=== PATIENT | female | born 1960 | race Caucasian/White ===

== ENCOUNTER → 2016-03-25 | Outpatient (CLI) | payer OTHER ==
--- NOTE | 2016-03-25 13:27 | US ---
EXAMINATION TYPE: US abdomen complete DATE OF EXAM: 03/25/2016 12:38 PM COMPARISON: 2011 CT in PACS CLINICAL HISTORY: R18.8 ASCITES. Pt states ABD bloating, alcohol abuse x 20 yrs, now quit EXAM MEASUREMENTS: Liver Length: 14.2 cm CBD: 1.0 cm Spleen: 9.8 cm Right Kidney: 10.9 x 3.9 x 4.9 cm Left Kidney: 11.5 x 4.9 x 4.6 cm TECHNOLOGIST IMPRESSION: Pancreas: head, body wnl/ tail obscured by bowel gas Liver: Appeared wnl Gallbladder: Surgically absent CBD: ?wnl post zulay Spleen: wnl Right Kidney: wnl Left Kidney: wnl Upper IVC: wnl Abd Aorta: wnl PLEASE NOTE: No ascites visualized throughout ABD The liver is homogenous. The intrahepatic portion of the IVC and proximal abdominal aorta are within normal limits. There is no evidence of cholelithiasis. Common bile duct is unremarkable. The visu alized portions of the pancreas are homogenous. The spleen is unremarkable. Kidneys are symmetric a nd free of hydronephrosis. No renal lesions are seen. IMPRESSION: Normal abdominal ultrasound.
== END | disposition home or self-care (01) ==
LOC: RADUSWWP 12:21
PROVIDERS: ATTEND Family Medicine
DX: R18.8 Other ascites (principal)
CPT/HCPCS: 76700

== ENCOUNTER → 2016-08-31 | Outpatient (CLI) | payer OTHER ==
--- NOTE | 2016-09-02 06:58 | MM ---
Reason for exam: screening (asymptomatic). Last mammogram was performed 1 year and 4 months ago. History: Patient is postmenopausal. Physical Findings: A clinical breast exam by your physician is recommended on an annual basis and results should be correlated with mammographic findings. MG 3D Screening Mammo W/Cad Bilateral CC and MLO view(s) were taken. Prior study comparison: May 10, 2015, bilateral MG 3d screening mammo w/cad. April 20, 2014, bilateral MG screening mammo w CAD. April 14, 2013, bilateral digital screening mammo w/CAD. There are scattered fibroglandular densities. No significant changes when compared with prior studies. ASSESSMENT: Negative, BI-RAD 1 RECOMMENDATION: Routine screening mammogram of both breasts in 1 year.
== END | disposition home or self-care (01) ==
LOC: RADMAMWWP 11:34
PROVIDERS: ATTEND Family Medicine
DX: Z12.31 Encounter for screening mammogram for malignant neoplasm of breast (principal)
CPT/HCPCS: 77063; G0202

== ENCOUNTER → 2017-11-09 | Outpatient (CLI) | payer OTHER ==
--- NOTE | 2017-11-11 13:22 | MM ---
Reason for exam: screening (asymptomatic). Last mammogram was performed 1 year and 2 months ago. History: Patient is postmenopausal. Took hormonal contraceptives for 15 years. Physical Findings: A clinical breast exam by your physician is recommended on an annual basis and results should be correlated with mammographic findings. MG 3D Screening Mammo W/Cad Bilateral CC and MLO view(s) were taken. Prior study comparison: August 31, 2016, bilateral MG 3d screening mammo w/cad. May 10, 2015, bilateral MG 3d screening mammo w/cad. There are scattered fibroglandular densities. No significant changes when compared with prior studies. ASSESSMENT: Benign, BI-RAD 2 RECOMMENDATION: Routine screening mammogram of both breasts in 1 year.
== END | disposition home or self-care (01) ==
LOC: RADMAMWWP 14:33
PROVIDERS: ATTEND Family Medicine
DX: Z12.31 Encounter for screening mammogram for malignant neoplasm of breast (principal)
CPT/HCPCS: 77063; 77067

== ENCOUNTER → 2019-01-16 | Outpatient (CLI) | payer OTHER ==
--- NOTE | 2019-01-17 11:03 | MM ---
Reason for exam: screening (asymptomatic). Last mammogram was performed 1 year and 2 months ago. History: Patient is postmenopausal. Took hormonal contraceptives for 15 years. Physical Findings: A clinical breast exam by your physician is recommended on an annual basis and results should be correlated with mammographic findings. MG 3D Screening Mammo W/Cad Bilateral CC and MLO view(s) were taken. Prior study comparison: November 09, 2017, bilateral MG 3d screening mammo w/cad. August 31, 2016, bilateral MG 3d screening mammo w/cad. There are scattered fibroglandular densities. Subareolar focal asymmetry on the left is more defined and incompletely disperses on the 3D images. Otherwise, no significant change. ASSESSMENT: Incomplete: need additional imaging evaluation, BI-RAD 0 RECOMMENDATION: Special view mammogram of the left breast. (3D) If lesion persists on supplemental views, image directed ultrasound is recommended. [facility] will attempt to contact patient to return for supplemental views and ultrasound if indicated.
== END ==
LOC: RADMAMWWP 15:19
PROVIDERS: ATTEND Family Medicine
DX: Z12.31 Encounter for screening mammogram for malignant neoplasm of breast (principal)
CPT/HCPCS: 77063; 77067

== ENCOUNTER → 2019-01-26 | Outpatient (CLI) | payer OTHER ==
[2019-01-26 11:55] LABS: African American GFR (CKD) >90 (>60 ml/min/1.73 sqM); Blood Urea Nitrogen 9 mg/dL (7-17); Non-African American GFR(CKD) 88 (>60 ml/min/1.73 sqM)
--- NOTE | 2019-01-26 15:59 | CT ---
EXAMINATION TYPE: CT abdomen pelvis w con DATE OF EXAM: 01/26/2019 COMPARISON: 01/20/2011 INDICATION: RIGHT FLANK PAIN AND WEIGHT LOSS DLP: 781.9 mGycm, Automated exposure control for dose reduction was used. CONTRAST: 100 mL of Isovue 300. Study performed with Oral Contrast TECHNIQUE: Axial images were obtained from above the diaphragm to the pubic rami in the axial plane a t 5 mm thick sections. Reconstructed images are reviewed on the computer in the coronal plane. FINDINGS: Limited CT sections are obtained the lung bases. The lung bases are clear. CT ABDOMEN: Liver: Normal Spleen: Normal Pancreas: Normal Adrenal glands: The adrenal glands are normal. Gallbladder: Surgically absent Kidneys: No masses are evident. No hydronephrosis is present. No cysts are present. Delayed images were obtained through the kidneys, which remain unremarkable. Aorta: Normal Inferior vena cava: Normal. CT PELVIS: Loops of bowel within the abdomen and pelvis are normal. Fecal debris is through the colon. There are loops of bowel lacking oral contrast limiting their evaluation. Appendix: The appendix lies lateral to the liver. No inflammatory changes are dilated appendix is chantal dent. Urinary bladder: Decompressed with limited evaluation. Genitourinary structures: Uterus appears normal. Adnexal regions are clear. Osseous structures: No suspicious lytic or sclerotic lesions. IMPRESSIONS: 1. No suspicious abnormality to account for right flank pain. 2. Chilaiditi syndrome
== END | disposition home or self-care (01) ==
LOC: RADCTMAIN 09:59
PROVIDERS: ATTEND Family Medicine
DX: K92.89 Other specified diseases of the digestive system (principal); Z88.1 Allergy status to other antibiotic agents
CPT/HCPCS: 82565; 84520; 74177; 36415; Q9967

== ENCOUNTER → 2019-01-27 | Outpatient (CLI) | payer OTHER ==
--- NOTE | 2019-01-27 11:11 | MM ---
Reason for exam: additional evaluation requested from abnormal screening. Last mammogram was performed less than 1 month ago. History: Patient is postmenopausal. Took hormonal contraceptives for 15 years. Physical Findings: Nurse did not find any significant physical abnormalities on exam. MG 3D Work Up W/Cad LT Spot compression CC, spot compression MLO, and LM view(s) were taken of the left breast. Prior study comparison: January 16, 2019, bilateral MG 3d screening mammo w/cad. November 09, 2017, bilateral MG 3d screening mammo w/cad. There are scattered fibroglandular densities. The previously seen abnormality resolves on additional views and appears as fibroglandular tissue compatible with summation. No suspicious abnormality. These results were verbally communicated with the patient and result sheet given to the patient on 01/27/19. ASSESSMENT: Negative, BI-RAD 1 RECOMMENDATION: Return to routine screening mammogram schedule for both breasts.
== END | disposition home or self-care (01) ==
LOC: RADMAMWWP 10:19
PROVIDERS: ATTEND Family Medicine
DX: R92.8 Other abnormal and inconclusive findings on diagnostic imaging of breast (principal)
CPT/HCPCS: 77065; G0279; 77061

== ENCOUNTER 2019-03-06 07:46 | Day surgery (SDC) | payer OTHER ==
[2019-03-03 12:51] VITALS: BMI 28.9
[~2019-03-06 07:46] MED LIST: LACTATED RINGERS 1,000 ML IV SCH; LIDOCAINE 1% 20 ML VIAL (10MG/ML) FOR IV START INTRADERMA PRN
[2019-03-06 08:10] VITALS: RESP 16; TEMP 97.8
[2019-03-06] MEDS ORDERED: DEXTROSE 50% SYRINGE 50 ML IVP ONE (08:22)
[2019-03-06] MEDS ORDERED: PROPOFOL 10 MG/ML 20 ML VIAL IV ONE (08:27)
[2019-03-06] MEDS ORDERED: LIDOCAINE 1% INJ 10MG/ML (20 ML MDV) ONE (08:27)
[2019-03-06 08:49] LABS: Glucose,Whole Blood 59 mg/dL (75-99)
[2019-03-06 08:49] LABS: Glucose,Whole Blood 111 mg/dL (75-99)
--- NOTE | 2019-03-06 08:49 | P.PCN ---
Date of Procedure: 03/06/19 Description of Procedure: BRIEF HISTORY: Patient is a 58-year-old female with a medical history significant for diabetes mellitus who presents to the outpatient setting for EGD for evaluation of GERD. Patient has a four-month history of daily intractable nausea, vomiting and bowel movements described as watery without blood. She reports unintentional weight loss with dietary changes. PROCEDURE PERFORMED: Esophagogastroduodenoscopy with biopsy. PREOPERATIVE DIAGNOSIS: Gastroesophageal reflux disease, nausea and vomiting. ESTIMATED BLOOD LOSS: Minimal. IV sedation per anesthesia. PROCEDURE: After informed consent was obtained, the patient was brought into the endoscopy unit. IV sedation was administered by Anesthesia under continuous monitoring. Initially the Olympus GIF-190 video endoscope was inserted into the mouth. Esophagus intubated without any difficulty. It was gradually advanced into the stomach and duodenum and carefully examined. The bulb and the second part of the duodenum appeared normal, with biopsies taken to rule out celiac sprue. The scope at this time was withdrawn to the stomach, adequately insufflated with air, and upon careful examination, mucosa of the antrum, body, cardia and the fundus appeared normal, except for moderate erythema and nodularity of the antrum suggestive of moderate antritis with biopsies of the antrum taken. The scope was then withdrawn into the esophagus. The GE junction was located at 36 cm from the incisors. The esophagus appeared normal. There were no erosions, varices or ulcerations seen and the patient tolerated the procedure well. IMPRESSION: 1. Moderate antritis, biopsies of the antrum taken. 2. Biopsies of the duodenum to rule out celiac sprue. RECOMMENDATIONS: The findings of this examination were discussed with the patient and her family. Okay to resume diet. Okay to resume medications. Await pathology from biopsies. Follow up in gastroenterology clinic as previously scheduled.
[2019-03-06 09:03] LABS: Glucose,Whole Blood 131 mg/dL (75-99)
[2019-03-06 09:07] VITALS: BP 107/75; PULSE 69
== END 2019-03-06 09:37 | disposition home or self-care (01) ==
LOC: ORWHC2ENDO 07:46
PROVIDERS: ATTEND Internal Medicine
DX: K29.50 Unspecified chronic gastritis without bleeding (principal); K21.9 Gastro-esophageal reflux disease without esophagitis; E11.9 Type 2 diabetes mellitus without complications; F41.9 Anxiety disorder, unspecified; F32.9 Major depressive disorder, single episode, unspecified; Z88.1 Allergy status to other antibiotic agents; Z79.84 Long term (current) use of oral hypoglycemic drugs; Z79.899 Other long term (current) drug therapy; Z90.49 Acquired absence of other specified parts of digestive tract
CPT/HCPCS: 88305; 88342; 43239; J2001; J2704

== ENCOUNTER → 2019-08-09 | Outpatient (CLI) | payer OTHER ==
--- NOTE | 2019-08-09 18:17 | BD ---
EXAMINATION TYPE: Axial Bone Density DATE OF EXAM: 08/09/2019 COMPARISON: NONE CLINICAL HISTORY: Nuclear Medicine Study in the last 2 weeks: NO Barium Study in the last week: NO : NO Height: 5 FT 3/4 IN Weight: 146 FRAX RISK QUESTIONS: Alcohol (3 or more units per day): NO Family History (Parent hip fracture): NO Glucocorticoids (More than 3mos): MO (Ex: prednisone, prednisolone, methylprednisolone, dexamethasone, and hydrocortisone). History of Fracture in Adulthood: NO Secondary Osteoporosis: 1. Type 1 Diabetes: NO 2. Hyperthyroidism: NO 3. Menopause before 45: YES 4. Malnutrition: NO 5. Chronic liver disease: NO Rheumatoid Arthritis: NO Current Tobacco Use: NO RISK FACTORS HISTORY OF: Family History of Osteoporosis: YES Active: NO Diet low in dairy products/other sources of calcium: YES Postmenopausal woman: AROUND AGE 44 Lost more than 2 inches in height since high school: YES MEDICATIONS: Additional Medications: BUSPIRONE, HYDROXYZINE, LITHIUM NALTREXONE, TRINTELIX,AMBIEN, BIOTIN, FUROSEM TIARRA, GLIMEPIRIDE, METFORMIN, POTASSIUM CHLORIDE, PRILOSEC, SIMVASTATIN, SPIRONOLACTONE, TRAMADOL, VIT D Additional History: EXAM MEASUREMENTS: Bone mineral densitometry was performed using the [employer] System. Bone mineral density as measured about the Lumbar spine is: ----- L1-L4(G/cm2): 1.111 T Score Values are as follows: ----- L2: -1.5 ----- L3: -1.0 ----- L4: 0.9 ----- L1-L4: -0.6 BASELINE Bone mineral density about the R hip (g/cm2): 0.817 Bone mineral density about the L hip (g/cm2): 0.947 T Score values are as follows: -----R Neck: -1.6 -----L Neck: -1.4 -----R Total: -1.2 -----L Total: -0.8 BASELINE IMPRESSION: Osteopenia (T Score between -2.5 and -1). There is slightly increased risk of fracture and the patient may be considered for treatment. Re-Screen 2-5 years. NOTE: T-SCORE=SD OF THE YOUNG ADULT MEAN.
== END | disposition home or self-care (01) ==
LOC: RADBDWWP 15:41
PROVIDERS: ATTEND Family Medicine
DX: M85.80 Other specified disorders of bone density and structure, unspecified site (principal); M19.90 Unspecified osteoarthritis, unspecified site; M79.605 Pain in left leg; Z88.1 Allergy status to other antibiotic agents; Z88.8 Allergy status to other drugs, medicaments and biological substances
CPT/HCPCS: 77080

== ENCOUNTER → 2020-07-23 | Outpatient (CLI) | payer OTHER ==
--- NOTE | 2020-07-23 16:33 | NM ---
EXAMINATION TYPE: NM bone scan whole body DATE OF EXAM: 07/23/2020 COMPARISON: NONE HISTORY: Joint pain, bone pain Delayed whole-body scanning was performed following the injection of 20.5 mCi Tc 99m MDP. Images acq uired 3 hours post injection. Delayed whole-body scanning was performed. FINDINGS: Soft tissue uptake is normal. Uptake within the feet, ankles, knees, wrists, elbows, shoulders and st ernoclavicular joints is likely degenerative. Uptake within the visualized lower spine is also presen t and may be due to degenerative disc disease and facet arthropathy, there is uptake in the mid and l ower thoracic spine, costovertebral angles, bandlike activity at the T9-10 level is noted. IMPRESSION: There may be osteoporotic compression deformity lower thoracic spine level. Degenerative changes.
== END | disposition home or self-care (01) ==
LOC: RADNMMAIN 11:07
PROVIDERS: ATTEND Family Medicine
DX: M89.8X9 Other specified disorders of bone, unspecified site (principal)
CPT/HCPCS: 78306; A9503

== ENCOUNTER → 2021-02-03 | Outpatient (CLI) | payer OTHER | END | disposition home or self-care (01) | LOC: LABWHC1 12:45 | PROVIDERS: ATTEND Family Medicine | DX: R09.89 Other specified symptoms and signs involving the circulatory and respiratory systems (principal); Z20.822 Contact with and (suspected) exposure to COVID-19 | CPT/HCPCS: U0003; C9803 ==

== ENCOUNTER 2021-06-08 06:39 | Inpatient (IN) | payer OTHER ==
[2021-06-08 06:46] LABS: Glucose,Whole Blood 152 mg/dL (75-99)
[2021-06-08] MEDS ORDERED: SODIUM CHLORIDE 0.9% 500 ML 500 ML IV STA (06:56)
[2021-06-08] MEDS ORDERED: SODIUM CHLORIDE 0.9% 1,000 ML IV STA (06:56)
[2021-06-08 07:25] LABS: Basophils % (A) 1 %; Eosinophils # (A) 0.1 k/uL (0-0.7); Eosinophils % (A) 2 %; HCT 36.8 % (34.0-46.0); HGB 12.2 gm/dL (11.4-16.0); Lymphocytes # (A) 1.4 k/uL (1.0-4.8); Lymphocytes % (A) 27 %; MCH 32.7 pg (25.0-35.0); MCHC 33.2 g/dL (31.0-37.0); MCV 98.6 fL (80.0-100.0); Mean Platelet Volume 7.8; Monocytes # (A) 0.3 k/uL (0-1.0); Monocytes % (A) 5 %; Neutrophils # (A) 3.2 k/uL (1.3-7.7); Neutrophils % (A) 63 %; Platelet Count 250 k/uL (150-450); RBC 3.74 m/uL (3.80-5.40); RDW 14.9 % (11.5-15.5)
--- NOTE | 2021-06-08 07:26 | XR ---
EXAMINATION TYPE: XR chest 2V DATE OF EXAM: 06/08/2021 COMPARISON: NONE HISTORY: Shortness of breath TECHNIQUE: Frontal and lateral views of the chest are obtained. FINDINGS: Scattered senescent parenchymal changes noted. No evidence for infiltrate. No evidence for atelectasis. Heart size is stable. Mediastinal structures are stable and grossly unremarkable. No evidence for hilar prominence. Degenerative changes dorsal spine. IMPRESSION: 1. No evidence for acute pulmonary disease.
[2021-06-08 07:48] LABS: Glucose,Whole Blood 64 mg/dL (75-99)
[2021-06-08 07:55] LABS: Appearance,Urine Clear (Clear); Bilirubin,Urine Negative (Negative); Blood,Urine Negative (Negative); Color,Urine Light Yellow; Glucose,Urine (UA) Negative (Negative); Ketones,Urine Negative (Negative); Leukocyte Esterase,Urine Negative (Negative); Nitrite,Urine Negative (Negative); Protein,Urine Negative (Negative); Specific Gravity,Urine 1.004 (1.001-1.035); Urobilinogen,Urine <2.0 mg/dL (<2.0)
[2021-06-08 08:06] LABS: INR 1.1 (<1.2); Partial Thromboplastin Time 24.9 sec (22.0-30.0); Prothrombin Time 11.4 sec (9.0-12.0)
[2021-06-08 08:07] LABS: Glucose,Whole Blood 60 mg/dL (75-99)
[2021-06-08 08:10] LABS: ALT 16 U/L (4-34); AST 26 U/L (14-36); African American GFR (CKD) >90 (>60 ml/min/1.73 sqM); Albumin 4.3 g/dL (3.5-5.0); Alkaline Phosphatase 86 U/L (38-126); Anion Gap 15 mmol/L; Blood Urea Nitrogen 14 mg/dL (7-17); Calcium 9.8 mg/dL (8.4-10.2); Carbon Dioxide 18 mmol/L (22-30); Chloride 112 mmol/L (98-107); Glucose 67 mg/dL (74-99); Magnesium 1.9 mg/dL (1.6-2.3); Non-African American GFR(CKD) 79 (>60 ml/min/1.73 sqM); Potassium 4.1 mmol/L (3.5-5.1); Sodium 145 mmol/L (137-145); Total Bilirubin 0.5 mg/dL (0.2-1.3); Total Protein 7.5 g/dL (6.3-8.2)
[2021-06-08] MEDS ORDERED: DEXTROSE 5%-0.45% NACL 1,000 ML IV ONE (08:11)
[2021-06-08] MEDS ORDERED: OCTREOTIDE 100 MCG/ML INJ IVP STA (08:12)
[2021-06-08 08:21] LABS: Amphetamine Screen,Urine Not Detected (NotDetected); Barbiturate Screen,Urine Not Detected (NotDetected); Benzodiazepines Screen,Urine Not Detected (NotDetected); Cocaine Screen,Urine Not Detected (NotDetected); Methadone Screen, Urine Not Detected (NotDetected); Opiate Screen,Urine Not Detected (NotDetected); Oxycodone Screen, Urine Not Detected (NotDetected); Phencyclidine Screen,Urine Not Detected (NotDetected); Tricyclic Antidepressant,Urine Not Detected (NotDetected); Urn Cannabinoid Scrn Not Detected (NotDetected)
[2021-06-08 08:50] LABS: Glucose,Whole Blood 75 mg/dL (75-99)
[2021-06-08] MEDS ORDERED: ONDANSETRON 4 MG/2 ML VIAL IVP PRN (08:55)
[2021-06-08] MEDS ORDERED: NALOXONE 0.4 MG/ML 1 ML VIAL IV PRN (08:55)
--- NOTE | 2021-06-08 08:55 | ED ---
General Adult HPI - General Source: patient, EMS, RN notes reviewed Mode of arrival: EMS Limitations: altered mental status <Karlo Calderón - Last Filed: 06/08/21 08:50> <Louie Patricia - Last Filed: 06/08/21 11:10> - General Chief complaint: Altered Mental Status Stated complaint: hypoglycemia Time Seen by Provider: 06/08/21 06:43 - History of Present Illness Initial comments: This a 60-year-old female presents emergency Department with chief went of hyperglycemia, confusion. Patient states that she has not been feeling well states that she called EMS ,EMS arrived and found to have blood sugar of 60. Patient did receive dextrose in which her blood sugar improved though asymmetric dewdrop unarousable emergency department. Patient states that she is currently depressed and she recently lost her fiance. Patient has underlying schizoaffective disorder. Patient states that she does have history of diabetes and glipizide and metformin. Patient has no physical complaints. Denies any chest pain shortness of breath headache dizziness or blurred vision or focal weakness. (Karlo Calderón) - Related Data Home Medications Medication Instructions Recorded Confirmed Cholecalciferol [Vitamin D3 (25 25 mcg PO HS 03/03/19 06/08/21 Mcg = 1000 Iu)] Furosemide [Lasix] 40 mg PO DAILY 03/03/19 06/08/21 Glimepiride [Amaryl] 4 mg PO BID 03/03/19 06/08/21 Omeprazole [PriLOSEC] 20 mg PO DAILY 03/03/19 06/08/21 Ondansetron [Zofran] 4 mg PO BID PRN 03/03/19 06/08/21 Potassium Chloride [Klor-Con 20] 20 meq PO BID 03/03/19 06/08/21 Spironolactone [Aldactone] 25 mg PO BID@0900,1900 03/03/19 06/08/21 metFORMIN HCL 500 mg PO DAILY 03/03/19 06/08/21 Amoxicillin 500 mg PO TID 05/27/21 06/08/21 Biotin 10,000 mcg PO DAILY@1900 05/27/21 06/08/21 Ibuprofen [Motrin] 800 mg PO QID PRN 05/27/21 06/08/21 Milk Thistle 150 mg PO DAILY@189905/27/21 06/08/21 Multivitamins, Thera [Multivitamin 1 tab PO BID@0900,1900 05/27/21 06/08/21 (formulary)] Pioglitazone [Actos] 15 mg PO DAILY@1900 05/27/21 06/08/21 Simvastatin [Zocor] 20 mg PO HS 05/27/21 06/08/21 Vilazodone HCl [Viibryd] 20 mg PO DIRECTED 05/27/21 06/08/21 Zolpidem Tartrate [Ambien Cr] 12.5 mg PO HS 05/27/21 06/08/21 buPROPion XL [Wellbutrin XL] 150 mg PO DAILY 05/27/21 06/08/21 Allergies Allergy/AdvReac Type Severity Reaction Status Date / Time ciprofloxacin [From Cipro] Allergy Itching Verified 06/08/21 10:16 miconazole Allergy Rash/Hives Verified 06/08/21 10:16 [From Neosporin AF] Review of Systems ROS Other: All systems not noted in ROS Statement are negative. <Karlo Calderón - Last Filed: 06/08/21 08:50> ROS Other: All systems not noted in ROS Statement are negative. <Louie Patricia - Last Filed: 06/08/21 11:10> ROS Statement: Those systems with pertinent positive or pertinent negative responses have been documented in the HPI. Past Medical History Past Medical History: Diabetes Mellitus, GERD/Reflux, Hyperlipidemia, Hypertension Additional Past Medical History / Comment(s): N/V/D FREQUENT History of Any Multi-Drug Resistant Organisms: None Reported Past Surgical History: Cholecystectomy Past Anesthesia/Blood Transfusion Reactions: No Reported Reaction Past Psychological History: Anxiety, Depression Smoking Status: Never smoker Past Alcohol Use History: None Reported Past Drug Use History: None Reported - Past Family History Mother Family Medical History: No Reported History <Karlo Calderón - Last Filed: 06/08/21 08:50> General Exam Limitations: no limitations General appearance: alert, in no apparent distress Head exam: Present: atraumatic, normocephalic, normal inspection Eye exam: Present: normal appearance, PERRL, EOMI. Absent: scleral icterus, conjunctival injection, periorbital swelling ENT exam: Present: normal exam, mucous membranes moist Neck exam: Present: normal inspection. Absent: tenderness, meningismus, lymphadenopathy Respiratory exam: Present: normal lung sounds bilaterally. Absent: respiratory distress, wheezes, rales, rhonchi, stridor Cardiovascular Exam: Present: regular rate, normal rhythm, tachycardia, normal heart sounds. Absent: systolic murmur, diastolic murmur, rubs, gallop, clicks GI/Abdominal exam: Present: soft, normal bowel sounds. Absent: distended, tenderness, guarding, rebound, rigid Neurological exam: Present: alert, CN II-XII intact. Absent: oriented X3 Skin exam: Present: warm, dry, intact, normal color. Absent: rash <Karlo Calderón - Last Filed: 06/08/21 08:50> Course Vital Signs 06/08/21 06/08/21 06/08/21 06:42 06:49 07:52 Temperature 98.6 F 98.6 F Pulse Rate 115 H 126 H 123 H Respiratory 18 18 20 Rate Blood Pressure 159/89 159/89 155/94 O2 Sat by Pulse 96 98 100 Oximetry 06/08/21 06/08/21 06/08/21 08:22 09:32 10:46 Temperature Pulse Rate 131 H 125 H 140 H Respiratory 22 20 24 Rate Blood Pressure 161/104 156/91 147/82 O2 Sat by Pulse 96 95 95 Oximetry Medical Decision Making - Lab Data Result diagrams: 06/08/21 07:13 06/08/21 07:38 <Karlo Calderón - Last Filed: 06/08/21 08:50> - Lab Data Result diagrams: 06/08/21 07:13 06/08/21 10:36 <Louie Patricia - Last Filed: 06/08/21 11:10> - Medical Decision Making 60-year-old female presented from it for hyperglycemia. Patient did receive dextrose, she has recurrent hypoglycemia refusing to drink. Patient may have overdosed on his her medications this is unclear if this time. Patient continues to be tachycardic with positive methamphetamine on drug screen. She denies this. Patient will be admitted for blood glucose monitoring, psychiatric evaluation and further treatment. (Karlo Calderón) Patient was reevaluated and reexamined by myself, Dr. Patricia. Patient resting comfortably in bed. Patient without specific complaints at this time. Patient is altered. Heart rate 150. Lung sounds are clear. Repeat chest x-ray done. Repeat labs are ordered. Patient is on bicarb drip. Poison control was contacted. Nephrology was also contacted. I did speak with Dr. Lennon, who a grees with ICU admission and will consult with critical care. I do agree with PA findings. This includes diagnostic interpretation and treatment plan. (Louie Patricia) - Lab Data Lab Results 06/08/21 06/08/21 06/08/21 Range/Units 06:44 07:13 07:38 WBC 5.0 (3.8-10.6) k/uL RBC 3.74 L (3.80-5.40) m/uL Hgb 12.2 (11.4-16.0) gm/dL Hct 36.8 (34.0-46.0) % MCV 98.6 (80.0-100.0) fL MCH 32.7 (25.0-35.0) pg MCHC 33.2 (31.0-37.0) g/dL RDW 14.9 (11.5-15.5) % Plt Count 250 (150-450) k/uL MPV 7.8 Neutrophils % 63 % Lymphocytes % 27 % Monocytes % 5 % Eosinophils % 2 % Basophils % 1 % Neutrophils # 3.2 (1.3-7.7) k/uL Lymphocytes # 1.4 (1.0-4.8) k/uL Monocytes # 0.3 (0-1.0) k/uL Eosinophils # 0.1 (0-0.7) k/uL Basophils # 0.0 (0-0.2) k/uL PT (9.0-12.0) sec INR (<1.2) APTT (22.0-30.0) sec VBG pH (7.31-7.41) VBG pCO2 (37-51) mmHg VBG HCO3 (24-28) mmol/L Sodium (137-145) mmol/L Potassium (3.5-5.1) mmol/L Chloride (98-107) mmol/L Carbon Dioxide (22-30) mmol/L Anion Gap mmol/L BUN (7-17) mg/dL Creatinine (0.52-1.04) mg/dL Est GFR (CKD-EPI)AfAm (>60 ml/min/1.73 sqM) Est GFR (CKD-EPI)NonAf (>60 ml/min/1.73 sqM) Glucose (74-99) mg/dL POC Glucose (mg/dL) 152 H (75-99) mg/dL POC Glu Head Of Mathematics ID Coleman Guillaume Plasma Lactic Acid Binh (0.7-2.0) mmol/L Calcium (8.4-10.2) mg/dL Magnesium (1.6-2.3) mg/dL Total Bilirubin (0.2-1.3) mg/dL AST (14-36) U/L ALT (4-34) U/L Alkaline Phosphatase (38-126) U/L Troponin I (0.000-0.034) ng/mL Total Protein (6.3-8.2) g/dL Albumin (3.5-5.0) g/dL Urine Color Light Yellow Urine Appearance Clear (Clear) Urine pH 5.0 (5.0-8.0) Ur Specific [place] 1.004 (1.001-1.035) Urine Protein Negative (Negative) Urine Glucose (UA) Negative (Negative) Urine Ketones Negative (Negative) Urine Blood Negative (Negative) Urine Nitrite Negative (Negative) Urine Bilirubin Negative (Negative) Urine Urobilinogen <2.0 (<2.0) mg/dL Ur Leukocyte Esterase Negative (Negative) Salicylates mg/dL Urine Opiates Screen Not Detected (NotDetected) Ur Oxycodone Screen Not Detected (NotDetected) Urine Methadone Screen Not Detected (NotDetected) Ur Propoxyphene Screen Not Detected (NotDetected) Acetaminophen ug/mL Ur Barbiturates Screen Not Detected (NotDetected) U Tricyclic Antidepress Not Detected (NotDetected) Ur Phencyclidine Scrn Not Detected (NotDetected) Ur Amphetamines Screen Not Detected (NotDetected) U Methamphetamines Scrn Detected H (NotDetected) U Benzodiazepines Scrn Not Detected (NotDetected) Urine Cocaine Screen Not Detected (NotDetected) U Marijuana (THC) Screen Not Detected (NotDetected) Serum Alcohol mg/dL 06/08/21 06/08/21 06/08/21 Range/Units 07:38 07:38 07:38 WBC (3.8-10.6) k/uL RBC (3.80-5.40) m/uL Hgb (11.4-16.0) gm/dL Hct (34.0-46.0) % MCV (80.0-100.0) fL MCH (25.0-35.0) pg MCHC (31.0-37.0) g/dL RDW (11.5-15.5) % Plt Count (150-450) k/uL MPV Neutrophils % % Lymphocytes % % Monocytes % % Eosinophils % % Basophils % % Neutrophils # (1.3-7.7) k/uL Lymphocytes # (1.0-4.8) k/uL Monocytes # (0-1.0) k/uL Eosinophils # (0-0.7) k/uL Basophils # (0-0.2) k/uL PT 11.4 (9.0-12.0) sec INR 1.1 (<1.2) APTT 24.9 (22.0-30.0) sec VBG pH (7.31-7.41) VBG pCO2 (37-51) mmHg VBG HCO3 (24-28) mmol/L Sodium (137-145) mmol/L Potassium (3.5-5.1) mmol/L Chloride (98-107) mmol/L Carbon Dioxide (22-30) mmol/L Anion Gap mmol/L BUN (7-17) mg/dL Creatinine (0.52-1.04) mg/dL Est GFR (CKD-EPI)AfAm (>60 ml/min/1.73 sqM) Est GFR (CKD-EPI)NonAf (>60 ml/min/1.73 sqM) Glucose (74-99) mg/dL POC Glucose (mg/dL) (75-99) mg/dL POC Glu Head Of Mathematics ID Plasma Lactic Acid Binh 1.1 (0.7-2.0) mmol/L Calcium (8.4-10.2) mg/dL Magnesium (1.6-2.3) mg/dL Total Bilirubin (0.2-1.3) mg/dL AST (14-36) U/L ALT (4-34) U/L Alkaline Phosphatase (38-126) U/L Troponin I <0.012 (0.000-0.034) ng/mL Total Protein (6.3-8.2) g/dL Albumin (3.5-5.0) g/dL Urine Color Urine Appearance (Clear) Urine pH (5.0-8.0) Ur Specific [place] (1.001-1.035) Urine Protein (Negative) Urine Glucose (UA) (Negative) Urine Ketones (Negative) Urine Blood (Negative) Urine Nitrite (Negative) Urine Bilirubin (Negative) Urine Urobilinogen (<2.0) mg/dL Ur Leukocyte Esterase (Negative) Salicylates mg/dL Urine Opiates Screen (NotDetected) Ur Oxycodone Screen (NotDetected) Urine Methadone Screen (NotDetected) Ur Propoxyphene Screen (NotDetected) Acetaminophen ug/mL Ur Barbiturates Screen (NotDetected) U Tricyclic Antidepress (NotDetected) Ur Phencyclidine Scrn (NotDetected) Ur Amphetamines Screen (NotDetected) U Methamphetamines Scrn (NotDetected) U Benzodiazepines Scrn (NotDetected) Urine Cocaine Screen (NotDetected) U Marijuana (THC) Screen (NotDetected) Serum Alcohol mg/dL 06/08/21 06/08/21 06/08/21 Range/Units 07:38 07:38 07:47 WBC (3.8-10.6) k/uL RBC (3.80-5.40) m/uL Hgb (11.4-16.0) gm/dL Hct (34.0-46.0) % MCV (80.0-100.0) fL MCH (25.0-35.0) pg MCHC (31.0-37.0) g/dL RDW (11.5-15.5) % Plt Count (150-450) k/uL MPV Neutrophils % % Lymphocytes % % Monocytes % % Eosinophils % % Basophils % % Neutrophils # (1.3-7.7) k/uL Lymphocytes # (1.0-4.8) k/uL Monocytes # (0-1.0) k/uL Eosinophils # (0-0.7) k/uL Basophils # (0-0.2) k/uL PT (9.0-12.0) sec INR (<1.2) APTT (22.0-30.0) sec VBG pH (7.31-7.41) VBG pCO2 (37-51) mmHg VBG HCO3 (24-28) mmol/L Sodium 145 (137-145) mmol/L Potassium 4.1 (3.5-5.1) mmol/L Chloride 112 H (98-107) mmol/L Carbon Dioxide 18 L (22-30) mmol/L Anion Gap 15 mmol/L BUN 14 (7-17) mg/dL Creatinine 0.81 (0.52-1.04) mg/dL Est GFR (CKD-EPI)AfAm >90 (>60 ml/min/1.73 sqM) Est GFR (CKD-EPI)NonAf 79 (>60 ml/min/1.73 sqM) Glucose 67 L (74-99) mg/dL POC Glucose (mg/dL) 64 L (75-99) mg/dL POC Glu Head Of Mathematics ID Radha Sierra Plasma Lactic Acid Binh (0.7-2.0) mmol/L Calcium 9.8 (8.4-10.2) mg/dL Magnesium 1.9 (1.6-2.3) mg/dL Total Bilirubin 0.5 (0.2-1.3) mg/dL AST 26 (14-36) U/L ALT 16 (4-34) U/L Alkaline Phosphatase 86 (38-126) U/L Troponin I (0.000-0.034) ng/mL Total Protein 7.5 (6.3-8.2) g/dL Albumin 4.3 (3.5-5.0) g/dL Urine Color Urine Appearance (Clear) Urine pH (5.0-8.0) Ur Specific [place] (1.001-1.035) Urine Protein (Negative) Urine Glucose (UA) (Negative) Urine Ketones (Negative) Urine Blood (Negative) Urine Nitrite (Negative) Urine Bilirubin (Negative) Urine Urobilinogen (<2.0) mg/dL Ur Leukocyte Esterase (Negative) Salicylates 68.7 H* mg/dL Urine Opiates Screen (NotDetected) Ur Oxycodone Screen (NotDetected) Urine Methadone Screen (NotDetected) Ur Propoxyphene Screen (NotDetected) Acetaminophen <10.0 ug/mL Ur Barbiturates Screen (NotDetected) U Tricyclic Antidepress (NotDetected) Ur Phencyclidine Scrn (NotDetected) Ur Amphetamines Screen (NotDetected) U Methamphetamines Scrn (NotDetected) U Benzodiazepines Scrn (NotDetected) Urine Cocaine Screen (NotDetected) U Marijuana (THC) Screen (NotDetected) Serum Alcohol mg/dL 06/08/21 06/08/21 06/08/21 Range/Units 08:06 08:48 09:31 WBC (3.8-10.6) k/uL RBC (3.80-5.40) m/uL Hgb (11.4-16.0) gm/dL Hct (34.0-46.0) % MCV (80.0-100.0) fL MCH (25.0-35.0) pg MCHC (31.0-37.0) g/dL RDW (11.5-15.5) % Plt Count (150-450) k/uL MPV Neutrophils % % Lymphocytes % % Monocytes % % Eosinophils % % Basophils % % Neutrophils # (1.3-7.7) k/uL Lymphocytes # (1.0-4.8) k/uL Monocytes # (0-1.0) k/uL Eosinophils # (0-0.7) k/uL Basophils # (0-0.2) k/uL PT (9.0-12.0) sec INR (<1.2) APTT (22.0-30.0) sec VBG pH (7.31-7.41) VBG pCO2 (37-51) mmHg VBG HCO3 (24-28) mmol/L Sodium (137-145) mmol/L Potassium (3.5-5.1) mmol/L Chloride (98-107) mmol/L Carbon Dioxide (22-30) mmol/L Anion Gap mmol/L BUN (7-17) mg/dL Creatinine (0.52-1.04) mg/dL Est GFR (CKD-EPI)AfAm (>60 ml/min/1.73 sqM) Est GFR (CKD-EPI)NonAf (>60 ml/min/1.73 sqM) Glucose (74-99) mg/dL POC Glucose (mg/dL) 60 L 75 (75-99) mg/dL POC Glu Head Of Mathematics Ashley Raymundo Katlyn Plasma Lactic Acid Binh (0.7-2.0) mmol/L Calcium (8.4-10.2) mg/dL Magnesium (1.6-2.3) mg/dL Total Bilirubin (0.2-1.3) mg/dL AST (14-36) U/L ALT (4-34) U/L Alkaline Phosphatase (38-126) U/L Troponin I (0.000-0.034) ng/mL Total Protein (6.3-8.2) g/dL Albumin (3.5-5.0) g/dL Urine Color Urine Appearance (Clear) Urine pH (5.0-8.0) Ur Specific [place] (1.001-1.035) Urine Protein (Negative) Urine Glucose (UA) (Negative) Urine Ketones (Negative) Urine Blood (Negative) Urine Nitrite (Negative) Urine Bilirubin (Negative) Urine Urobilinogen (<2.0) mg/dL Ur Leukocyte Esterase (Negative) Salicylates mg/dL Urine Opiates Screen (NotDetected) Ur Oxycodone Screen (NotDetected) Urine Methadone Screen (NotDetected) Ur Propoxyphene Screen (NotDetected) Acetaminophen ug/mL Ur Barbiturates Screen (NotDetected) U Tricyclic Antidepress (NotDetected) Ur Phencyclidine Scrn (NotDetected) Ur Amphetamines Screen (NotDetected) U Methamphetamines Scrn (NotDetected) U Benzodiazepines Scrn (NotDetected) Urine Cocaine Screen (NotDetected) U Marijuana (THC) Screen (NotDetected) Serum Alcohol <10 mg/dL 06/08/21 06/08/21 06/08/21 Range/Units 09:46 10:36 10:36 WBC (3.8-10.6) k/uL RBC (3.80-5.40) m/uL Hgb (11.4-16.0) gm/dL Hct (34.0-46.0) % MCV (80.0-100.0) fL MCH (25.0-35.0) pg MCHC (31.0-37.0) g/dL RDW (11.5-15.5) % Plt Count (150-450) k/uL MPV Neutrophils % % Lymphocytes % % Monocytes % % Eosinophils % % Basophils % % Neutrophils # (1.3-7.7) k/uL Lymphocytes # (1.0-4.8) k/uL Monocytes # (0-1.0) k/uL Eosinophils # (0-0.7) k/uL Basophils # (0-0.2) k/uL PT (9.0-12.0) sec INR (<1.2) APTT (22.0-30.0) sec VBG pH (7.31-7.41) VBG pCO2 (37-51) mmHg VBG HCO3 (24-28) mmol/L Sodium 145 (137-145) mmol/L Potassium 4.3 (3.5-5.1) mmol/L Chloride 113 H (98-107) mmol/L Carbon Dioxide 14 L (22-30) mmol/L Anion Gap 18 mmol/L BUN 13 (7-17) mg/dL Creatinine 0.81 (0.52-1.04) mg/dL Est GFR (CKD-EPI)AfAm >90 (>60 ml/min/1.73 sqM) Est GFR (CKD-EPI)NonAf 79 (>60 ml/min/1.73 sqM) Glucose 165 H (74-99) mg/dL POC Glucose (mg/dL) 128 H (75-99) mg/dL POC Glu Head Of Mathematics ID Ashley Bennett Plasma Lactic Acid Binh 1.4 (0.7-2.0) mmol/L Calcium 9.9 (8.4-10.2) mg/dL Magnesium 2.0 (1.6-2.3) mg/dL Total Bilirubin (0.2-1.3) mg/dL AST (14-36) U/L ALT (4-34) U/L Alkaline Phosphatase (38-126) U/L Troponin I (0.000-0.034) ng/mL Total Protein (6.3-8.2) g/dL Albumin (3.5-5.0) g/dL Urine Color Urine Appearance (Clear) Urine pH (5.0-8.0) Ur Specific [place] (1.001-1.035) Urine Protein (Negative) Urine Glucose (UA) (Negative) Urine Ketones (Negative) Urine Blood (Negative) Urine Nitrite (Negative) Urine Bilirubin (Negative) Urine Urobilinogen (<2.0) mg/dL Ur Leukocyte Esterase (Negative) Salicylates mg/dL Urine Opiates Screen (NotDetected) Ur Oxycodone Screen (NotDetected) Urine Methadone Screen (NotDetected) Ur Propoxyphene Screen (NotDetected) Acetaminophen ug/mL Ur Barbiturates Screen (NotDetected) U Tricyclic Antidepress (NotDetected) Ur Phencyclidine Scrn (NotDetected) Ur Amphetamines Screen (NotDetected) U Methamphetamines Scrn (NotDetected) U Benzodiazepines Scrn (NotDetected) Urine Cocaine Screen (NotDetected) U Marijuana (THC) Screen (NotDetected) Serum Alcohol mg/dL 06/08/21 Range/Units 10:36 WBC (3.8-10.6) k/uL RBC (3.80-5.40) m/uL Hgb (11.4-16.0) gm/dL Hct (34.0-46.0) % MCV (80.0-100.0) fL MCH (25.0-35.0) pg MCHC (31.0-37.0) g/dL RDW (11.5-15.5) % Plt Count (150-450) k/uL MPV Neutrophils % % Lymphocytes % % Monocytes % % Eosinophils % % Basophils % % Neutrophils # (1.3-7.7) k/uL Lymphocytes # (1.0-4.8) k/uL Monocytes # (0-1.0) k/uL Eosinophils # (0-0.7) k/uL Basophils # (0-0.2) k/uL PT (9.0-12.0) sec INR (<1.2) APTT (22.0-30.0) sec VBG pH 7.35 (7.31-7.41) VBG pCO2 33 L (37-51) mmHg VBG HCO3 17 L (24-28) mmol/L Sodium (137-145) mmol/L Potassium (3.5-5.1) mmol/L Chloride (98-107) mmol/L Carbon Dioxide (22-30) mmol/L Anion Gap mmol/L BUN (7-17) mg/dL Creatinine (0.52-1.04) mg/dL Est GFR (CKD-EPI)AfAm (>60 ml/min/1.73 sqM) Est GFR (CKD-EPI)NonAf (>60 ml/min/1.73 sqM) Glucose (74-99) mg/dL POC Glucose (mg/dL) (75-99) mg/dL POC Glu Head Of Mathematics ID Plasma Lactic Acid Binh (0.7-2.0) mmol/L Calcium (8.4-10.2) mg/dL Magnesium (1.6-2.3) mg/dL Total Bilirubin (0.2-1.3) mg/dL AST (14-36) U/L ALT (4-34) U/L Alkaline Phosphatase (38-126) U/L Troponin I (0.000-0.034) ng/mL Total Protein (6.3-8.2) g/dL Albumin (3.5-5.0) g/dL Urine Color Urine Appearance (Clear) Urine pH (5.0-8.0) Ur Specific [place] (1.001-1.035) Urine Protein (Negative) Urine Glucose (UA) (Negative) Urine Ketones (Negative) Urine Blood (Negative) Urine Nitrite (Negative) Urine Bilirubin (Negative) Urine Urobilinogen (<2.0) mg/dL Ur Leukocyte Esterase (Negative) Salicylates mg/dL Urine Opiates Screen (NotDetected) Ur Oxycodone Screen (NotDetected) Urine Methadone Screen (NotDetected) Ur Propoxyphene Screen (NotDetected) Acetaminophen ug/mL Ur Barbiturates Screen (NotDetected) U Tricyclic Antidepress (NotDetected) Ur Phencyclidine Scrn (NotDetected) Ur Amphetamines Screen (NotDetected) U Methamphetamines Scrn (NotDetected) U Benzodiazepines Scrn (NotDetected) Urine Cocaine Screen (NotDetected) U Marijuana (THC) Screen (NotDetected) Serum Alcohol mg/dL Disposition <Karlo Calderón - Last Filed: 06/08/21 08:50> <Louie Patricia - Last Filed: 06/08/21 11:10> Clinical Impression: Depression, Methamphetamine use, Hypoglycemia, Altered mental status, Salicylate overdose Disposition: ADMITTED IP TO THIS [facility] Condition: Serious
[2021-06-08 09:09] LABS: Acetaminophen <10.0 ug/mL
[2021-06-08] MEDS ORDERED: DEXTROSE 10% IN WATER 1,000 ML with SODIUM CHLORIDE 2.5MEQ/ML VIAL 153.8 MEQ IV SCH (09:15)
[2021-06-08 09:21] LABS: Salicylate 68.7 mg/dL
[2021-06-08 09:50] LABS: Glucose,Whole Blood 128 mg/dL (75-99)
[2021-06-08 10:47] LABS: VBG PH 7.35 (7.31-7.41)
--- NOTE | 2021-06-08 10:55 | ED ---
Medical Decision Making - Medical Decision Making Upon further investigation patient's symptoms labwork is adamant patient found to have facilities acid overdose. Poison control was contacted I did contact nephrology patient was started on sodium bicarb and in D5 water with potassium. Patient's is being closely monitored. 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 Patient was admitted to ICU case discussed with apparatus operator. - Lab Data Result diagrams: 06/09/21 05:27 06/09/21 13:00 Lab Results 06/08/21 06/08/21 06/08/21 Range/Units 06:44 07:13 07:38 WBC 5.0 (3.8-10.6) k/uL RBC 3.74 L (3.80-5.40) m/uL Hgb 12.2 (11.4-16.0) gm/dL Hct 36.8 (34.0-46.0) % MCV 98.6 (80.0-100.0) fL MCH 32.7 (25.0-35.0) pg MCHC 33.2 (31.0-37.0) g/dL RDW 14.9 (11.5-15.5) % Plt Count 250 (150-450) k/uL MPV 7.8 Neutrophils % 63 % Lymphocytes % 27 % Monocytes % 5 % Eosinophils % 2 % Basophils % 1 % Neutrophils # 3.2 (1.3-7.7) k/uL Lymphocytes # 1.4 (1.0-4.8) k/uL Monocytes # 0.3 (0-1.0) k/uL Eosinophils # 0.1 (0-0.7) k/uL Basophils # 0.0 (0-0.2) k/uL PT (9.0-12.0) sec INR (<1.2) APTT (22.0-30.0) sec Sodium (137-145) mmol/L Potassium (3.5-5.1) mmol/L Chloride (98-107) mmol/L Carbon Dioxide (22-30) mmol/L Anion Gap mmol/L BUN (7-17) mg/dL Creatinine (0.52-1.04) mg/dL Est GFR (CKD-EPI)AfAm (>60 ml/min/1.73 sqM) Est GFR (CKD-EPI)NonAf (>60 ml/min/1.73 sqM) Glucose (74-99) mg/dL POC Glucose (mg/dL) 152 H (75-99) mg/dL POC Glu Tug Hand ID Coleman Guillaume Plasma Lactic Acid Binh (0.7-2.0) mmol/L Calcium (8.4-10.2) mg/dL Magnesium (1.6-2.3) mg/dL Total Bilirubin (0.2-1.3) mg/dL AST (14-36) U/L ALT (4-34) U/L Alkaline Phosphatase (38-126) U/L Troponin I (0.000-0.034) ng/mL Total Protein (6.3-8.2) g/dL Albumin (3.5-5.0) g/dL Urine Color Light Yellow Urine Appearance Clear (Clear) Urine pH 5.0 (5.0-8.0) Ur Specific [place] 1.004 (1.001-1.035) Urine Protein Negative (Negative) Urine Glucose (UA) Negative (Negative) Urine Ketones Negative (Negative) Urine Blood Negative (Negative) Urine Nitrite Negative (Negative) Urine Bilirubin Negative (Negative) Urine Urobilinogen <2.0 (<2.0) mg/dL Ur Leukocyte Esterase Negative (Negative) Salicylates mg/dL Urine Opiates Screen Not Detected (NotDetected) Ur Oxycodone Screen Not Detected (NotDetected) Urine Methadone Screen Not Detected (NotDetected) Ur Propoxyphene Screen Not Detected (NotDetected) Acetaminophen ug/mL Ur Barbiturates Screen Not Detected (NotDetected) U Tricyclic Antidepress Not Detected (NotDetected) Ur Phencyclidine Scrn Not Detected (NotDetected) Ur Amphetamines Screen Not Detected (NotDetected) U Methamphetamines Scrn Detected H (NotDetected) U Benzodiazepines Scrn Not Detected (NotDetected) Urine Cocaine Screen Not Detected (NotDetected) U Marijuana (THC) Screen Not Detected (NotDetected) 06/08/21 06/08/21 06/08/21 Range/Units 07:38 07:38 07:38 WBC (3.8-10.6) k/uL RBC (3.80-5.40) m/uL Hgb (11.4-16.0) gm/dL Hct (34.0-46.0) % MCV (80.0-100.0) fL MCH (25.0-35.0) pg MCHC (31.0-37.0) g/dL RDW (11.5-15.5) % Plt Count (150-450) k/uL MPV Neutrophils % % Lymphocytes % % Monocytes % % Eosinophils % % Basophils % % Neutrophils # (1.3-7.7) k/uL Lymphocytes # (1.0-4.8) k/uL Monocytes # (0-1.0) k/uL Eosinophils # (0-0.7) k/uL Basophils # (0-0.2) k/uL PT 11.4 (9.0-12.0) sec INR 1.1 (<1.2) APTT 24.9 (22.0-30.0) sec Sodium (137-145) mmol/L Potassium (3.5-5.1) mmol/L Chloride (98-107) mmol/L Carbon Dioxide (22-30) mmol/L Anion Gap mmol/L BUN (7-17) mg/dL Creatinine (0.52-1.04) mg/dL Est GFR (CKD-EPI)AfAm (>60 ml/min/1.73 sqM) Est GFR (CKD-EPI)NonAf (>60 ml/min/1.73 sqM) Glucose (74-99) mg/dL POC Glucose (mg/dL) (75-99) mg/dL POC Glu Tug Hand ID Plasma Lactic Acid Binh 1.1 (0.7-2.0) mmol/L Calcium (8.4-10.2) mg/dL Magnesium (1.6-2.3) mg/dL Total Bilirubin (0.2-1.3) mg/dL AST (14-36) U/L ALT (4-34) U/L Alkaline Phosphatase (38-126) U/L Troponin I <0.012 (0.000-0.034) ng/mL Total Protein (6.3-8.2) g/dL Albumin (3.5-5.0) g/dL Urine Color Urine Appearance (Clear) Urine pH (5.0-8.0) Ur Specific [place] (1.001-1.035) Urine Protein (Negative) Urine Glucose (UA) (Negative) Urine Ketones (Negative) Urine Blood (Negative) Urine Nitrite (Negative) Urine Bilirubin (Negative) Urine Urobilinogen (<2.0) mg/dL Ur Leukocyte Esterase (Negative) Salicylates mg/dL Urine Opiates Screen (NotDetected) Ur Oxycodone Screen (NotDetected) Urine Methadone Screen (NotDetected) Ur Propoxyphene Screen (NotDetected) Acetaminophen ug/mL Ur Barbiturates Screen (NotDetected) U Tricyclic Antidepress (NotDetected) Ur Phencyclidine Scrn (NotDetected) Ur Amphetamines Screen (NotDetected) U Methamphetamines Scrn (NotDetected) U Benzodiazepines Scrn (NotDetected) Urine Cocaine Screen (NotDetected) U Marijuana (THC) Screen (NotDetected) 06/08/21 06/08/21 06/08/21 Range/Units 07:38 07:38 07:47 WBC (3.8-10.6) k/uL RBC (3.80-5.40) m/uL Hgb (11.4-16.0) gm/dL Hct (34.0-46.0) % MCV (80.0-100.0) fL MCH (25.0-35.0) pg MCHC (31.0-37.0) g/dL RDW (11.5-15.5) % Plt Count (150-450) k/uL MPV Neutrophils % % Lymphocytes % % Monocytes % % Eosinophils % % Basophils % % Neutrophils # (1.3-7.7) k/uL Lymphocytes # (1.0-4.8) k/uL Monocytes # (0-1.0) k/uL Eosinophils # (0-0.7) k/uL Basophils # (0-0.2) k/uL PT (9.0-12.0) sec INR (<1.2) APTT (22.0-30.0) sec Sodium 145 (137-145) mmol/L Potassium 4.1 (3.5-5.1) mmol/L Chloride 112 H (98-107) mmol/L Carbon Dioxide 18 L (22-30) mmol/L Anion Gap 15 mmol/L BUN 14 (7-17) mg/dL Creatinine 0.81 (0.52-1.04) mg/dL Est GFR (CKD-EPI)AfAm >90 (>60 ml/min/1.73 sqM) Est GFR (CKD-EPI)NonAf 79 (>60 ml/min/1.73 sqM) Glucose 67 L (74-99) mg/dL POC Glucose (mg/dL) 64 L (75-99) mg/dL POC Glu Tug Hand ID Radha Sierra Plasma Lactic Acid Binh (0.7-2.0) mmol/L Calcium 9.8 (8.4-10.2) mg/dL Magnesium 1.9 (1.6-2.3) mg/dL Total Bilirubin 0.5 (0.2-1.3) mg/dL AST 26 (14-36) U/L ALT 16 (4-34) U/L Alkaline Phosphatase 86 (38-126) U/L Troponin I (0.000-0.034) ng/mL Total Protein 7.5 (6.3-8.2) g/dL Albumin 4.3 (3.5-5.0) g/dL Urine Color Urine Appearance (Clear) Urine pH (5.0-8.0) Ur Specific [place] (1.001-1.035) Urine Protein (Negative) Urine Glucose (UA) (Negative) Urine Ketones (Negative) Urine Blood (Negative) Urine Nitrite (Negative) Urine Bilirubin (Negative) Urine Urobilinogen (<2.0) mg/dL Ur Leukocyte Esterase (Negative) Salicylates 68.7 H* mg/dL Urine Opiates Screen (NotDetected) Ur Oxycodone Screen (NotDetected) Urine Methadone Screen (NotDetected) Ur Propoxyphene Screen (NotDetected) Acetaminophen <10.0 ug/mL Ur Barbiturates Screen (NotDetected) U Tricyclic Antidepress (NotDetected) Ur Phencyclidine Scrn (NotDetected) Ur Amphetamines Screen (NotDetected) U Methamphetamines Scrn (NotDetected) U Benzodiazepines Scrn (NotDetected) Urine Cocaine Screen (NotDetected) U Marijuana (THC) Screen (NotDetected) 06/08/21 Range/Units 08:06 WBC (3.8-10.6) k/uL RBC (3.80-5.40) m/uL Hgb (11.4-16.0) gm/dL Hct (34.0-46.0) % MCV (80.0-100.0) fL MCH (25.0-35.0) pg MCHC (31.0-37.0) g/dL RDW (11.5-15.5) % Plt Count (150-450) k/uL MPV Neutrophils % % Lymphocytes % % Monocytes % % Eosinophils % % Basophils % % Neutrophils # (1.3-7.7) k/uL Lymphocytes # (1.0-4.8) k/uL Monocytes # (0-1.0) k/uL Eosinophils # (0-0.7) k/uL Basophils # (0-0.2) k/uL PT (9.0-12.0) sec INR (<1.2) APTT (22.0-30.0) sec Sodium (137-145) mmol/L Potassium (3.5-5.1) mmol/L Chloride (98-107) mmol/L Carbon Dioxide (22-30) mmol/L Anion Gap mmol/L BUN (7-17) mg/dL Creatinine (0.52-1.04) mg/dL Est GFR (CKD-EPI)AfAm (>60 ml/min/1.73 sqM) Est GFR (CKD-EPI)NonAf (>60 ml/min/1.73 sqM) Glucose (74-99) mg/dL POC Glucose (mg/dL) 60 L (75-99) mg/dL POC Glu Tug Hand ID Ashley Bennett Plasma Lactic Acid Binh (0.7-2.0) mmol/L Calcium (8.4-10.2) mg/dL Magnesium (1.6-2.3) mg/dL Total Bilirubin (0.2-1.3) mg/dL AST (14-36) U/L ALT (4-34) U/L Alkaline Phosphatase (38-126) U/L Troponin I (0.000-0.034) ng/mL Total Protein (6.3-8.2) g/dL Albumin (3.5-5.0) g/dL Urine Color Urine Appearance (Clear) Urine pH (5.0-8.0) Ur Specific [place] (1.001-1.035) Urine Protein (Negative) Urine Glucose (UA) (Negative) Urine Ketones (Negative) Urine Blood (Negative) Urine Nitrite (Negative) Urine Bilirubin (Negative) Urine Urobilinogen (<2.0) mg/dL Ur Leukocyte Esterase (Negative) Salicylates mg/dL Urine Opiates Screen (NotDetected) Ur Oxycodone Screen (NotDetected) Urine Methadone Screen (NotDetected) Ur Propoxyphene Screen (NotDetected) Acetaminophen ug/mL Ur Barbiturates Screen (NotDetected) U Tricyclic Antidepress (NotDetected) Ur Phencyclidine Scrn (NotDetected) Ur Amphetamines Screen (NotDetected) U Methamphetamines Scrn (NotDetected) U Benzodiazepines Scrn (NotDetected) Urine Cocaine Screen (NotDetected) U Marijuana (THC) Screen (NotDetected) Critical Care Time Critical Care Time: Yes Total Critical Care Time: 75 Disposition Clinical Impression: Depression, Methamphetamine use, Hypoglycemia, Altered mental status, Salicylate overdose Disposition: ADMITTED IP TO THIS [facility] Condition: Serious
[2021-06-08 10:56] LABS: African American GFR (CKD) >90 (>60 ml/min/1.73 sqM); Anion Gap 18 mmol/L; Blood Urea Nitrogen 13 mg/dL (7-17); Calcium 9.9 mg/dL (8.4-10.2); Carbon Dioxide 14 mmol/L (22-30); Chloride 113 mmol/L (98-107); Glucose 165 mg/dL (74-99); Non-African American GFR(CKD) 79 (>60 ml/min/1.73 sqM); Potassium 4.3 mmol/L (3.5-5.1); Sodium 145 mmol/L (137-145)
[2021-06-08] MEDS ORDERED: SODIUM BICARBONATE 150 MEQ in DEXTROSE 5% IN WATER 1,000 ML IV SCH (11:00)
[2021-06-08 12:22] LABS: Glucose,Whole Blood 231 mg/dL (75-99)
--- NOTE | 2021-06-08 12:26 | CT ---
EXAMINATION TYPE: CT brain wo con DATE OF EXAM: 06/08/2021 COMPARISON: None HISTORY: Altered mental status. CT DLP: 1048.[address] of the brain was performed. The ventricles, basal cisterns and sulci overlying the cerebral convexities demonstrate mild enlargem ent. 1.3 cm area of hyperdensity right frontal region image 34 of 49. I cannot exclude an area of hemorrha ge. The findings could be artifactual as there is patient motion. Correlate clinically. There is decreased attenuation about the periventricular white matter and deep white matter of both c erebral hemispheres, compatible with chronic small vessel ischemia. Differential diagnosis does inclu de demyelination. No mass effects are seen.No midline shift. Osseous calvarium is intact. If symptoms persist consider MRI. IMPRESSION: 1. 1.3 cm area of hyperdensity right frontal region image 34 of 49. I cannot exclude an area of hemor rhage. The findings could be artifactual as there is patient motion. Correlate clinically.
--- NOTE | 2021-06-08 12:41 | XR ---
EXAMINATION TYPE: XR chest 1V portable DATE OF EXAM: 06/08/2021 HISTORY: Shortness of breath. COMPARISON: 06/08/2021 TECHNIQUE: Single view of the chest is submitted. FINDINGS: Demonstrated are scattered senescent parenchymal change. There is no evidence for focal infiltrate. The heart is stable. Hilar and mediastinal structures are within normal limits. Degenerative changes are seen of the dorsal spine. IMPRESSION: 1. Chronic changes without evidence for acute pulmonary disease.
--- NOTE | 2021-06-08 13:06 | P.CNPUL ---
History of Present Illness Consult date: 06/08/21 Requesting physician: Karlo Calderón Chief complaint: Altered mental status History of present illness: 60-year-old white female patient with past medical history of schizoaffective disorder, diabetes mellitus2, hypertension, hyperlipidemia, GERD, anxiety, depression, who presented emergency department per EMS on 06/08/2021 with a chief complaint of hypoglycemia, and confusion. Patient had not been feeling well and she had called the EMS. On arrival EMS found her blood sugar was 60 mg/dL. Patient did receive a amp of 50% dextrose and the blood sugar had improved. Patient admitted to being depressed lately, and there was a suspicion that the patient may have overdosed on some of her medications. Patient denies being suicidal, she states she took a total of 8 aspirins for a headache, reportedly 3 tablets last night, and unknown exact timing of the remaining aspirin intake. Drug screen was positive for methamphetamines. Salicylate level was 68.7, acetaminophen level was less than 10, patient is serum alcohol level of less than 10, white blood cell count was normal at 5.0, hemoglobin of 12.2, coagulation profile was unremarkable, sodium is 145, potassium is 4.1, chloride is 112, CO2 is 18, anion gap was 15, BUN is 14 creatinine is 0.81, LFTs were within normal limits, lactic acid was 1.1, troponin was less than 0.012. Chest x-ray showed no evidence for acute pulmonary disease, a CT has been com pleted, the report is pending, EKG showed sinus tachycardia. Patient was started on D5W with 3 A of bicarbonate at a rate of 200 ML per hour after initial fluid bolus of 1.5 L. Patient is evaluated in the intensive care unit, she is awake and alert, she is oriented 3, she is answering questions a ppropriately. Denies any acute distress other than being thirsty, mild fogginess in her hearing, denies any tinnitus, denies difficulty breathing other than mild tachypnea, and does admit to feeling some palpitations. nonprofit fundraiser is at the bedside for suicidal precaution monitoring. Psychiatry services have been consulted, nephrology has been consulted, and no plans for hemodialysis at this time with continued monitoring for any changes Review of Systems All systems: negative Constitutional: Denies chills, Denies fever Eyes: denies blurred vision, denies pain Ears, nose, mouth and throat: Denies headache, Denies sore throat Cardiovascular: Denies chest pain, Denies shortness of breath Respiratory: Denies cough Gastrointestinal: Denies abdominal pain, Denies diarrhea, Denies nausea, Denies vomiting Genitourinary: Denies dysuria, Denies hematuria Musculoskeletal: Denies myalgias Integumentary: Denies pruritus, Denies rash Neurological: Reports change in mentation, Denies numbness, Denies weakness Psychiatric: Reports depression, Denies anxiety Endocrine: Denies fatigue, Denies weight change Past Medical History Past Medical History: Diabetes Mellitus, GERD/Reflux, Hyperlipidemia, Hypertension Additional Past Medical History / Comment(s): N/V/D FREQUENT History of Any Multi-Drug Resistant Organisms: None Reported Past Surgical History: Cholecystectomy Past Anesthesia/Blood Transfusion Reactions: No Reported Reaction Past Psychological History: Anxiety, Depression Smoking Status: Never smoker Past Alcohol Use History: None Reported Past Drug Use History: None Reported - Past Family History Mother Family Medical History: No Reported History Medications and Allergies Home Medications Medication Instructions Recorded Confirmed Type Cholecalciferol [Vitamin D3 (25 25 mcg PO HS 03/03/19 06/08/21 History Mcg = 1000 Iu)] Furosemide [Lasix] 40 mg PO DAILY 03/03/19 06/08/21 History Glimepiride [Amaryl] 4 mg PO BID 03/03/19 06/08/21 History Omeprazole [PriLOSEC] 20 mg PO DAILY 03/03/19 06/08/21 History Ondansetron [Zofran] 4 mg PO BID PRN 03/03/19 06/08/21 History Potassium Chloride [Klor-Con 20] 20 meq PO BID 03/03/19 06/08/21 History Spironolactone [Aldactone] 25 mg PO BID@0900,1900 03/03/19 06/08/21 History metFORMIN HCL 500 mg PO DAILY 03/03/19 06/08/21 History Amoxicillin 500 mg PO TID 05/27/21 06/08/21 History Biotin 10,000 mcg PO DAILY@189905/27/21 06/08/21 History Ibuprofen [Motrin] 800 mg PO QID PRN 05/27/21 06/08/21 History Milk Thistle 150 mg PO DAILY@189905/27/21 06/08/21 History Multivitamins, Thera [Multivitamin 1 tab PO BID@0900,1900 05/27/21 06/08/21 History (formulary)] Pioglitazone [Actos] 15 mg PO DAILY@1900 05/27/21 06/08/21 History Simvastatin [Zocor] 20 mg PO HS 05/27/21 06/08/21 History Vilazodone HCl [Viibryd] 20 mg PO DIRECTED 05/27/21 06/08/21 History Zolpidem Tartrate [Ambien Cr] 12.5 mg PO HS 05/27/21 06/08/21 History buPROPion XL [Wellbutrin XL] 150 mg PO DAILY 05/27/21 06/08/21 History Allergies Allergy/AdvReac Type Severity Reaction Status Date / Time ciprofloxacin [From Cipro] Allergy Itching Verified 06/08/21 10:16 miconazole Allergy Rash/Hives Verified 06/08/21 10:16 [From Neosporin AF] Physical Exam Vitals: Vital Signs Temp Pulse Resp BP Pulse Ox 06/08/21 11:17 98.1 F 135 H 26 H 157/88 96 06/08/21 10:46 140 H 24 147/82 95 06/08/21 09:32 125 H 20 156/91 95 06/08/21 08:22 131 H 22 161/104 96 06/08/21 07:52 123 H 20 155/94 100 06/08/21 06:49 98.6 F 126 H 18 159/89 98 06/08/21 06:42 98.6 F 115 H 18 159/89 96 Intake and Output 06/07/21 06/08/21 06/08/21 22:59 06:59 14:59 Output Total 175 Balance -175 Output: Urine 175 Uretheral (Davis) 175 Other: Weight 60.328 kg GENERAL EXAM: Alert, tafht-duvp-suc white female, resting in bed in the intensive care unit, on room air with a pulse ox 96%, comfortable in no apparent distress. HEAD: Normocephalic/atraumatic. EYES: Normal reaction of pupils, equal size. Conjunctiva pink, sclera white. NOSE: Clear with pink turbinates. THROAT: No erythema or exudates. NECK: No masses, no JVD, no thyroid enlargement, no adenopathy. CHEST: No chest wall deformity. Symmetrical expansion. LUNGS: Equal air entry with no crackles, wheeze, rhonchi or dullness. CVS: Regular rate and rhythm, normal S1 and S2, no gallops, no murmurs, no rubs ABDOMEN: Soft, nontender. No hepatosplenomegaly, normal bowel sounds, no gua rding or rigidity. EXTREMITIES: No clubbing, no edema, no cyanosis, 2+ pulses and upper and lower extremities. MUSCULOSKELETAL: Muscle strength and tone normal. SPINE: No scoliosis or deformity SKIN: No rashes CENTRAL NERVOUS SYSTEM: Alert and oriented -3. No focal deficits, tone is normal in all 4 extremities. PSYCHIATRIC: Alert and oriented -3. Appropriate affect. Intact judgment and insight. Results - Laboratory Findings CBC and BMP: 06/08/21 07:13 06/08/21 10:36 PT/INR, D-dimer PT 11.4 sec (9.0-12.0) 06/08/21 07:38 INR 1.1 (<1.2) 06/08/21 07:38 Abnormal lab findings: Abnormal Labs 06/08/21 06/08/21 06/08/21 06:44 07:13 07:38 RBC 3.74 L VBG pCO2 VBG HCO3 Chloride Carbon Dioxide Glucose POC Glucose (mg/dL) 152 H Salicylates U Methamphetamines Scrn Detected H 06/08/21 06/08/21 06/08/21 07:38 07:38 07:47 RBC VBG pCO2 VBG HCO3 Chloride 112 H Carbon Dioxide 18 L Glucose 67 L POC Glucose (mg/dL) 64 L Salicylates 68.7 H* U Methamphetamines Scrn 06/08/21 06/08/21 06/08/21 08:06 09:46 10:36 RBC VBG pCO2 VBG HCO3 Chloride 113 H Carbon Dioxide 14 L Glucose 165 H POC Glucose (mg/dL) 60 L 128 H Salicylates U Methamphetamines Scrn 06/08/21 10:36 RBC VBG pCO2 33 L VBG HCO3 17 L Chloride Carbon Dioxide Glucose POC Glucose (mg/dL) Salicylates U Methamphetamines Scrn - Diagnostic Findings Chest x-ray: report reviewed, image reviewed Additional studies: CT of the brain, and EKG completed, official radiology report on the CT of the brain is still pending Assessment and Plan Plan: Assessment: #1. Acute salicylate toxicity, patient denies intentional overdose, reports taking a total of 8 tablets of 325 mg aspirin for a headache. Salicylate level was 68.7. Nephrology is consulted, no pulmonary edema, mentation is appropriate , patient continues on a Cardizem infusion at this time #2. Hypoglycemia, possibly related to the above, improved #3. Anion gap metabolic acidosis related to acute salicylate toxicity #4. Positive drug screen for methamphetamines #5. Schizoaffective disorder #6. Anxiety and depression #7. Diabetes mellitus type 2 #8. Hyperlipidemia #9. Hypertension #10. Nonsmoker #11. History of alcohol dependence, the patient reported being sober for the past 3 years Plan: Continue D5W with 3 A of bicarbonate at a rate of 200 ML per hour Patient remains mildly tachycardic, but hemodynamically she is stable No pulmonary edema, patient is on room air Mentation is appropriate, she is alert and oriented 3 Nephrology recommendations No plans for hemodialysis at this time Continue close monitoring in intensive care unit Poison control has been consulted and following the classification case manager blood sugars every 2 hours Sliding scale insulin Consist carb diet CT brain without contrast results Continue to closely follow I have personally seen and examined the patient, performed the documentation and the assessment and plan as written. Number of minutes spent on the visit: [15] Time with Patient: Greater than 30
--- NOTE | 2021-06-08 14:22 | P.CN ---
Psychiatric Consult - . Consult:: IDENTIFYING DATA: Patient is a 60-year-old female who was admitted for an aspirin overdose and psychiatry is consulted for possible overdose, depression, and schizoaffective disorder HPI: States that she was having a bad headache, and as a result she ended up taking more aspirin than she should have taken. Denies that this was a suicide attempt. States that she does have a history of depression, and during her depressive episodes she has crying spells and she isolates. Denies history of suicide attempts or suicidality. Denies current or past hallucinations, rosanne, access to guns or weapons. PAST PSYCHIATRIC HISTORY: Follows up outpatient monthly and goes to [facility] weekly for therapy. Denies a history of psychiatric hospitalizations. Unsure of her current medication regimen (likely due to her current grogginess/mild confusion due to ASA OD). Per chart she is on Wellbutrin XL 150 mg, trazodone 20 mg daily at bedtime as directed, and Ambien 12.5 mg daily at bedtime PMH: Diabetes ALLERGIES: as per EMR CHEMICAL DEPENDENCY HISTORY: Used to abuse alcohol but has been sober since 08/22/2020. Used cocaine in the remote past. Had a Xanax addiction in the remote past. No cigarette use. No current drug or alcohol use. FAMILY PSYCHIATRIC/SUBSTANCE USE HISTORY: Alcoholism in father SOCIAL HISTORY: Her fianc recently . She lives by herself and is on disability MENTAL STATUS EXAM: General Appearance: 60-year-old female who appears older than stated age, dressed appropriately in a green hospital gown, lying in bed Behavior: Patient is seated without any agitated behavior. [] Speech: Patient's speech is [fluent and nonpressured.] Mood/Affect: Patient reports their mood is "I don't know", affect is constricted Suicidality/Homicidality: Patient denies having any homicidal ideation intent or plan. [Denies any suicidal ideations intent or plan] Perceptions: Patient denies any visual hallucinations [and denies any auditory hallucinations] Though content/process: [There is no evidence of any delusional thought content and thought process is linear and goal-directed.] Memory and concentration: AOX2, states that it is 06/19/2021 Judgment and insight: Impaired IMPRESSIONS: Depression unspecified (does not meet criteria for MDD or schizoaffective disorder). It appears that this current overdose was not a suicide attempt PLAN: -hold psychotropics at this time, will restart tomorrow or Wednesday -Psychiatry will continue to follow -does not meet criteria for inpatient psychiatric hospitalization at this time ] [] 06/08/21 14:16
--- NOTE | 2021-06-08 14:24 | P.NPCON ---
History of Present Illness - Reason for Consult Consult date: 06/08/21 metabolic acidosis - Chief Complaint Altered mental status - History of Present Illness Coming to the hospital with altered mental status. Hypoglycemic with low blood sugars. String of psychiatric problems, 2 aspirin at home. 8 as per the note but she did not tell me how much very poor historian. Salicylate level of 65. No pulmonary edema. Blood gases respiratory alkalosis with metabolic acidosis. Currently in ICU on bicarb drip. Good urine output. Review of Systems Constitutional: Reports as per HPI Past Medical History Past Medical History: Diabetes Mellitus, GERD/Reflux, Hyperlipidemia, Hypertension Additional Past Medical History / Comment(s): N/V/D FREQUENT History of Any Multi-Drug Resistant Organisms: None Reported Past Surgical History: Cholecystectomy Past Anesthesia/Blood Transfusion Reactions: No Reported Reaction Past Psychological History: Anxiety, Depression Smoking Status: Never smoker Past Alcohol Use History: None Reported Past Drug Use History: None Reported - Past Family History Mother Family Medical History: No Reported History Medications and Allergies Home Medications Medication Instructions Recorded Confirmed Type Cholecalciferol [Vitamin D3 (25 25 mcg PO HS 03/03/19 06/08/21 History Mcg = 1000 Iu)] Furosemide [Lasix] 40 mg PO DAILY 03/03/19 06/08/21 History Glimepiride [Amaryl] 4 mg PO BID 03/03/19 06/08/21 History Omeprazole [PriLOSEC] 20 mg PO DAILY 03/03/19 06/08/21 History Ondansetron [Zofran] 4 mg PO BID PRN 03/03/19 06/08/21 History Potassium Chloride [Klor-Con 20] 20 meq PO BID 03/03/19 06/08/21 History Spironolactone [Aldactone] 25 mg PO BID@0900,1900 03/03/19 06/08/21 History metFORMIN HCL 500 mg PO DAILY 03/03/19 06/08/21 History Amoxicillin 500 mg PO TID 05/27/21 06/08/21 History Biotin 10,000 mcg PO DAILY@189905/27/21 06/08/21 History Ibuprofen [Motrin] 800 mg PO QID PRN 05/27/21 06/08/21 History Milk Thistle 150 mg PO DAILY@189905/27/21 06/08/21 History Multivitamins, Thera [Multivitamin 1 tab PO BID@0900,1900 05/27/21 06/08/21 History (formulary)] Pioglitazone [Actos] 15 mg PO DAILY@1900 05/27/21 06/08/21 History Simvastatin [Zocor] 20 mg PO HS 05/27/21 06/08/21 History Vilazodone HCl [Viibryd] 20 mg PO DIRECTED 05/27/21 06/08/21 History Zolpidem Tartrate [Ambien Cr] 12.5 mg PO HS 05/27/21 06/08/21 History buPROPion XL [Wellbutrin XL] 150 mg PO DAILY 05/27/21 06/08/21 History Allergies Allergy/AdvReac Type Severity Reaction Status Date / Time ciprofloxacin [From Cipro] Allergy Itching Verified 06/08/21 10:16 miconazole Allergy Rash/Hives Verified 06/08/21 10:16 [From Neosporin AF] Physical Exam Vitals: Vital Signs Temp Pulse Resp BP Pulse Ox 06/08/21 11:17 98.1 F 135 H 26 H 157/88 96 06/08/21 10:46 140 H 24 147/82 95 06/08/21 09:32 125 H 20 156/91 95 06/08/21 08:22 131 H 22 161/104 96 06/08/21 07:52 123 H 20 155/94 100 06/08/21 06:49 98.6 F 126 H 18 159/89 98 06/08/21 06:42 98.6 F 115 H 18 159/89 96 Intake and Output 06/07/21 06/08/21 06/08/21 22:59 06:59 14:59 Output Total 175 Balance -175 Output: Urine 175 Uretheral (Davis) 175 Other: Weight 60.328 kg 64 kg No acute distress S1-S2 heard Decreased breath sounds No edema Results - Lab Results Most recent lab results Calcium 9.9 mg/dL (8.4-10.2) 06/08/21 10:36 Magnesium 2.0 mg/dL (1.6-2.3) 06/08/21 10:36 06/08/21 07:13 06/08/21 10:36 Assessment and Plan Assessment: #1 metabolic acidosis with respiratory alkalosis secondary to salicylate toxicity. #2 history of hypertension currently controlled. #3 hypoglycemia with history of diabetes. Plan: #1 renal function stable. No pulmonary edema on chest x-ray. CT head concern for cerebral hemorrhage. #2 continue with bicarb drip. #3 no acute indication for renal replacement therapy at this time.
[2021-06-08] MEDS: DEXTROSE 5% IN WATER 1,000 ML with SODIUM BICARB (1 MEQ/ML) 150 ML IV SCH ×2 (14:30→17:29)
[2021-06-08 16:32] LABS: Glucose,Whole Blood 227 mg/dL (75-99)
[2021-06-08] MEDS: INSULIN ASPART (NovoLOG) 100 UNIT/ML VIAL SQ SCH ×2 (16:34→22:03)
[2021-06-08] MEDS: ACETAMINOPHEN TAB 325 MG TAB PO PRN (16:34)
[2021-06-08 18:07] LABS: African American GFR (CKD) >90 (>60 ml/min/1.73 sqM); Anion Gap 12 mmol/L; Blood Urea Nitrogen 11 mg/dL (7-17); Calcium 8.8 mg/dL (8.4-10.2); Carbon Dioxide 20 mmol/L (22-30); Chloride 110 mmol/L (98-107); Glucose 168 mg/dL (74-99); Non-African American GFR(CKD) 83 (>60 ml/min/1.73 sqM); Potassium 3.3 mmol/L (3.5-5.1); Sodium 142 mmol/L (137-145)
[2021-06-08 18:44] LABS: Salicylate 64.3 mg/dL
[2021-06-08] MEDS ORDERED: HALOPERIDOL LACTATE 5 MG/ML 1 ML VIAL IM STA (18:44)
[2021-06-08] MEDS ORDERED: Potassium Replacement Protocol 1 EACH MISC MISCELLANE PRN ×2 (19:13→23:30)
[2021-06-08] MEDS ORDERED: DEXMEDETOMIDINE/0.9% NACL(PMX) 400 MCG in EMPTY BAG 1 BAG IV SCH (19:15)
[2021-06-08] MEDS: POTASSIUM CHLORIDE 10 MEQ in WATER FOR INJECTION 1 100ML.BAG IVPB SCH ×3 (19:55→22:33)
[2021-06-08 20:17] LABS: African American GFR (CKD) >90 (>60 ml/min/1.73 sqM); Anion Gap 13 mmol/L; Blood Urea Nitrogen 11 mg/dL (7-17); Calcium 8.4 mg/dL (8.4-10.2); Carbon Dioxide 22 mmol/L (22-30); Chloride 108 mmol/L (98-107); Glucose 120 mg/dL (74-99); Non-African American GFR(CKD) 89 (>60 ml/min/1.73 sqM); Sodium 143 mmol/L (137-145)
[2021-06-08 20:32] LABS: Salicylate 63.3 mg/dL
[2021-06-08 21:33] LABS: African American GFR (CKD) >90 (>60 ml/min/1.73 sqM); Anion Gap 10 mmol/L; Blood Urea Nitrogen 11 mg/dL (7-17); Carbon Dioxide 23 mmol/L (22-30); Chloride 108 mmol/L (98-107); Glucose 126 mg/dL (74-99); Non-African American GFR(CKD) 84 (>60 ml/min/1.73 sqM); Potassium 3.1 mmol/L (3.5-5.1); Sodium 141 mmol/L (137-145)
[2021-06-08 21:49] LABS: Salicylate 54.3 mg/dL
[2021-06-08 23:49] LABS: African American GFR (CKD) >90 (>60 ml/min/1.73 sqM); Anion Gap 8 mmol/L; Blood Urea Nitrogen 11 mg/dL (7-17); Calcium 7.8 mg/dL (8.4-10.2); Carbon Dioxide 25 mmol/L (22-30); Chloride 105 mmol/L (98-107); Glucose 168 mg/dL (74-99); Non-African American GFR(CKD) 86 (>60 ml/min/1.73 sqM); Potassium 3.2 mmol/L (3.5-5.1); Sodium 138 mmol/L (137-145)
[2021-06-09] MEDS: POTASSIUM CHLORIDE ER 20 MEQ TAB.ER PO SCH ×11 (00:01→20:50)
[2021-06-09] MEDS: POTASSIUM CHLORIDE 10 MEQ in WATER FOR INJECTION 1 100ML.BAG IVPB SCH ×5 (00:09→05:38)
[2021-06-09 00:19] LABS: Salicylate 51.5 mg/dL
[2021-06-09 01:44] LABS: African American GFR (CKD) >90 (>60 ml/min/1.73 sqM); Anion Gap 7 mmol/L; Blood Urea Nitrogen 11 mg/dL (7-17); Calcium 7.6 mg/dL (8.4-10.2); Carbon Dioxide 28 mmol/L (22-30); Chloride 104 mmol/L (98-107); Glucose 165 mg/dL (74-99); Non-African American GFR(CKD) 83 (>60 ml/min/1.73 sqM); Potassium 3.1 mmol/L (3.5-5.1); Sodium 139 mmol/L (137-145)
[2021-06-09] MEDS: DEXTROSE 5% IN WATER 1,000 ML with SODIUM BICARB (1 MEQ/ML) 150 ML IV SCH ×2 (01:48→08:04)
[2021-06-09 01:56] LABS: Salicylate 49.4 mg/dL
[2021-06-09] MEDS ORDERED: Potassium Replacement Protocol 1 EACH MISC MISCELLANE PRN ×4 (02:03→16:24)
[2021-06-09 03:52] LABS: ALT 12 U/L (4-34); AST 22 U/L (14-36); African American GFR (CKD) >90 (>60 ml/min/1.73 sqM); Alkaline Phosphatase 58 U/L (38-126); Anion Gap 6 mmol/L; Blood Urea Nitrogen 11 mg/dL (7-17); Calcium 7.4 mg/dL (8.4-10.2); Carbon Dioxide 29 mmol/L (22-30); Chloride 103 mmol/L (98-107); Glucose 163 mg/dL (74-99); Non-African American GFR(CKD) 84 (>60 ml/min/1.73 sqM); Sodium 138 mmol/L (137-145); Total Bilirubin 0.3 mg/dL (0.2-1.3); Total Protein 5.1 g/dL (6.3-8.2)
[2021-06-09 04:08] LABS: Salicylate 45.5 mg/dL
[2021-06-09 05:55] LABS: Basophils % (A) 1 %; Eosinophils # (A) 0.1 k/uL (0-0.7); Eosinophils % (A) 2 %; HCT 28.2 % (34.0-46.0); Lymphocytes # (A) 1.2 k/uL (1.0-4.8); Lymphocytes % (A) 33 %; MCH 32.2 pg (25.0-35.0); MCHC 32.7 g/dL (31.0-37.0); MCV 98.3 fL (80.0-100.0); Macrocytosis Slight; Mean Platelet Volume 7.1; Monocytes # (A) 0.3 k/uL (0-1.0); Monocytes % (A) 7 %; Neutrophils # (A) 2.1 k/uL (1.3-7.7); Neutrophils % (A) 56 %; Platelet Count 253 k/uL (150-450); RBC 2.87 m/uL (3.80-5.40); RDW 15.7 % (11.5-15.5); WBC 3.7 k/uL (3.8-10.6)
[2021-06-09 05:58] LABS: HGB 9.2 gm/dL (11.4-16.0)
[2021-06-09 06:42] LABS: Glucose,Whole Blood 179 mg/dL (75-99)
[2021-06-09] MEDS: INSULIN ASPART (NovoLOG) 100 UNIT/ML VIAL SQ SCH ×4 (06:45→21:11)
[2021-06-09 08:40] LABS: African American GFR (CKD) >90 (>60 ml/min/1.73 sqM); Anion Gap 4 mmol/L; Blood Urea Nitrogen 10 mg/dL (7-17); Calcium 7.4 mg/dL (8.4-10.2); Carbon Dioxide 33 mmol/L (22-30); Chloride 103 mmol/L (98-107); Glucose 145 mg/dL (74-99); Non-African American GFR(CKD) 86 (>60 ml/min/1.73 sqM); Sodium 140 mmol/L (137-145)
[2021-06-09 08:47] LABS: Potassium 2.6 mmol/L (3.5-5.1)
[2021-06-09] MEDS: PANTOPRAZOLE 40 MG/10 ML VIAL IVP SCH (09:22)
[2021-06-09 09:54] LABS: Estimated Average Glucose UNC
--- NOTE | 2021-06-09 09:59 | P.PN ---
Subjective Progress Note Date: 06/09/21 Principal diagnosis: Altered mental status, salicylate overdose 60-year-old white female patient with past medical history of schizoaffective disorder, diabetes mellitus2, hypertension, hyperlipidemia, GERD, anxiety, depression, who presented emergency department per EMS on 06/08/2021 with a chief complaint of hypoglycemia, and confusion. Patient had not been feeling well and she had called the EMS. On arrival EMS found her blood sugar was 60 mg/dL. Patient did receive a amp of 50% dextrose and the blood sugar had improved. Patient admitted to being depressed lately, and there was a suspicion that the patient may have overdosed on some of her medications. Patient denies being suicidal, she states she took a total of 8 aspirins for a headache, reportedly 3 tablets last night, and unknown exact timing of the remaining aspirin intake. Drug screen was positive for methamphetamines. Salicylate level was 68.7, acetaminophen level was less than 10, patient is serum alcohol level of less than 10, white blood cell count was normal at 5.0, hemoglobin of 12.2, coagulation profile was unremarkable, sodium is 145, potassium is 4.1, chloride is 112, CO2 is 18, anion gap was 15, BUN is 14 creatinine is 0.81, LFTs were within normal limits, lactic acid was 1.1, troponin was less than 0.012. Chest x-ray showed no evidence for acute pulmonary disease, a CT has been completed, the report is pending, EKG showed sinus tachycardia. Patient was started on D5W with 3 A of bicarbonate at a rate of 200 ML per hour after initial fluid bolus of 1.5 L. Patient is evaluated in the intensive care unit, she is awake and alert, she is oriented 3, she is answering questions appropriately. Denies any acute distress other than being thirsty, mild fogginess in her hearing, denies any tinnitus, denies difficulty breathing other than mild tachypnea, and does admit to feeling some palpitations. molder feeder is at the bedside for suicidal precaution monitoring. Psychiatry services have been consulted, nephrology has been consulted, and no plans for hemodialysis at this time with continued monitoring for any changes. On 06/09/2021 patient seen in follow-up. Patient is resting in bed, she is arousable to voice, she is oriented 3, responding appropriately, denies any acute distress, no difficulty breathing. Last night apparently patient became quite anxious, agitated and even combative, she was placed in soft wrist restraints, she was started on Precedex, and once she became calm and cooperative the soft wrist restraints had been removed. Room air pulse ox is 93%, vital signs as follows, temperature is 98.2, blood pressure is 86/54 with a mean of 64, and blood pressures are a bit on the lower side this morning, she is in sinus mechanism with a controlled rate, denies any shortness of breath no cough, no chest discomfort. Less tachypneic on today's exam, less tachycardic. She currently remains on D5W with 3 A of bicarbonate at a rate of 200 ML per hour, and 0.9 normal saline @ 10 ML per hour. Today's labs have been reviewed her white blood cell count is 3.7, hemoglobin is 9.2, sodium is 140, potassium is 2.6, chloride is 103, CO2 is 33, BUN is 10 and creatinine 0.75. Her lactic acid this morning was 0.8, salicylate level is down to 41 on today's labs, urine pH is 7.0. Indwelling catheter is in place and patient is producing 82-175 ML o f urine per hour. Objective - Vital Signs Vital signs: Vital Signs Temp 98.2 F 06/09/21 04:37 Pulse 86 06/09/21 05:44 Resp 16 06/09/21 07:00 BP 91/50 06/09/21 07:00 Pulse Ox 93 L 06/09/21 07:00 Intake & Output 06/08/21 06/09/21 06/09/21 18:59 06:59 18:59 Intake Total 1300 3402.319 Output Total 400 1640 Balance 900 1762.319 Weight 64 kg 66 kg Intake: IV 800 2600 Dextrose 5% in Water 1, 800 2600 000 ml @ 200 mls/hr IV . Q5H45M [facility] with Sodium Bicarb (1 Meq/ml) 150 ml Rx#:[id number] Intake, IV Titration 482.319 Amount Dexmedetomidine/0.9% NaCl 32.319 (Pmx) 400 mcg In Empty Bag 1 bag @ 0.2 MCG/KG/HR 3.2 mls/hr IV .Q24H [facility] Rx#:[id number] Potassium Chloride 10 meq 450 In Water For Injection 1 100ml.bag @ 100 mls/hr IVPB Q1HR [facility] Rx#: [id number] Oral 500 320 Output: Urine 400 1640 Uretheral (Davis) 175 Other: Voiding Method Indwelling Catheter Indwelling Catheter - Exam GENERAL EXAM: Alert, [id number] white female, resting in bed in the intensive care unit, on room air with a pulse ox 96%, comfortable in no apparent distress. HEAD: Normocephalic/atraumatic. EYES: Normal reaction of pupils, equal size. Conjunctiva pink, sclera white. NOSE: Clear with pink turbinates. THROAT: No erythema or exudates. NECK: No masses, no JVD, no thyroid enlargement, no adenopathy. CHEST: No chest wall deformity. Symmetrical expansion. LUNGS: Equal air entry with no crackles, wheeze, rhonchi or dullness. CVS: Regular rate and rhythm, normal S1 and S2, no gallops, no murmurs, no rubs ABDOMEN: Soft, nontender. No hepatosplenomegaly, normal bowel sounds, no guarding or rigidity. EXTREMITIES: No clubbing, no edema, no cyanosis, 2+ pulses and upper and lower extremities. MUSCULOSKELETAL: Muscle strength and tone normal. SPINE: No scoliosis or deformity SKIN: No rashes CENTRAL NERVOUS SYSTEM: Alert and oriented -3. No focal deficits, tone is normal in all 4 extremities. PSYCHIATRIC: Alert and oriented -3. Appropriate affect. Intact judgment and insight. - Labs CBC & Chem 7: 06/09/21 05:27 06/09/21 08:02 Labs: Abnormal Lab Results - Last 24 Hours (Table) 06/08/21 06/08/21 06/08/21 Range/Units 09:46 10:36 10:36 WBC (3.8-10.6) k/uL RBC (3.80-5.40) m/uL Hgb (11.4-16.0) gm/dL Hct (34.0-46.0) % RDW (11.5-15.5) % VBG pCO2 33 L (37-51) mmHg VBG HCO3 17 L (24-28) mmol/L Potassium (3.5-5.1) mmol/L Chloride 113 H (98-107) mmol/L Carbon Dioxide 14 L (22-30) mmol/L Glucose 165 H (74-99) mg/dL POC Glucose (mg/dL) 128 H (75-99) mg/dL Calcium (8.4-10.2) mg/dL Ionized Calcium Shante (4.5-5.3) mg/dL Total Protein (6.3-8.2) g/dL Albumin (3.5-5.0) g/dL Salicylates mg/dL 06/08/21 06/08/21 06/08/21 Range/Units 12:20 16:30 17:35 WBC (3.8-10.6) k/uL RBC (3.80-5.40) m/uL Hgb (11.4-16.0) gm/dL Hct (34.0-46.0) % RDW (11.5-15.5) % VBG pCO2 (37-51) mmHg VBG HCO3 (24-28) mmol/L Potassium 3.3 L (3.5-5.1) mmol/L Chloride 110 H (98-107) mmol/L Carbon Dioxide 20 L (22-30) mmol/L Glucose 168 H (74-99) mg/dL POC Glucose (mg/dL) 231 H 227 H (75-99) mg/dL Calcium (8.4-10.2) mg/dL Ionized Calcium Shante (4.5-5.3) mg/dL Total Protein (6.3-8.2) g/dL Albumin (3.5-5.0) g/dL Salicylates 64.3 H* mg/dL 06/08/21 06/08/21 06/08/21 Range/Units 19:33 21:01 23:10 WBC (3.8-10.6) k/uL RBC (3.80-5.40) m/uL Hgb (11.4-16.0) gm/dL Hct (34.0-46.0) % RDW (11.5-15.5) % VBG pCO2 (37-51) mmHg VBG HCO3 (24-28) mmol/L Potassium 3.0 L 3.1 L 3.2 L (3.5-5.1) mmol/L Chloride 108 H 108 H (98-107) mmol/L Carbon Dioxide (22-30) mmol/L Glucose 120 H 126 H 168 H (74-99) mg/dL POC Glucose (mg/dL) (75-99) mg/dL Calcium 8.0 L 7.8 L (8.4-10.2) mg/dL Ionized Calcium Shante (4.5-5.3) mg/dL Total Protein (6.3-8.2) g/dL Albumin (3.5-5.0) g/dL Salicylates 63.3 H* 54.3 H* 51.5 H* mg/dL 06/09/21 06/09/21 06/09/21 Range/Units 01:09 03:06 03:06 WBC (3.8-10.6) k/uL RBC (3.80-5.40) m/uL Hgb (11.4-16.0) gm/dL Hct (34.0-46.0) % RDW (11.5-15.5) % VBG pCO2 (37-51) mmHg VBG HCO3 (24-28) mmol/L Potassium 3.1 L 3.0 L (3.5-5.1) mmol/L Chloride (98-107) mmol/L Carbon Dioxide (22-30) mmol/L Glucose 165 H 163 H (74-99) mg/dL POC Glucose (mg/dL) (75-99) mg/dL Calcium 7.6 L 7.4 L (8.4-10.2) mg/dL Ionized Calcium Shante 4.1 L (4.5-5.3) mg/dL Total Protein 5.1 L (6.3-8.2) g/dL Albumin 3.0 L (3.5-5.0) g/dL Salicylates 49.4 H* 45.5 H* mg/dL 06/09/21 06/09/21 06/09/21 Range/Units 05:27 05:27 06:41 WBC 3.7 L (3.8-10.6) k/uL RBC 2.87 L (3.80-5.40) m/uL Hgb 9.2 L D (11.4-16.0) gm/dL Hct 28.2 L (34.0-46.0) % RDW 15.7 H (11.5-15.5) % VBG pCO2 (37-51) mmHg VBG HCO3 (24-28) mmol/L Potassium (3.5-5.1) mmol/L Chloride (98-107) mmol/L Carbon Dioxide (22-30) mmol/L Glucose (74-99) mg/dL POC Glucose (mg/dL) 179 H (75-99) mg/dL Calcium (8.4-10.2) mg/dL Ionized Calcium Shante (4.5-5.3) mg/dL Total Protein (6.3-8.2) g/dL Albumin (3.5-5.0) g/dL Salicylates 41.0 H* mg/dL 06/09/21 Range/Units 08:02 WBC (3.8-10.6) k/uL RBC (3.80-5.40) m/uL Hgb (11.4-16.0) gm/dL Hct (34.0-46.0) % RDW (11.5-15.5) % VBG pCO2 (37-51) mmHg VBG HCO3 (24-28) mmol/L Potassium 2.6 L* (3.5-5.1) mmol/L Chloride (98-107) mmol/L Carbon Dioxide 33 H (22-30) mmol/L Glucose 145 H (74-99) mg/dL POC Glucose (mg/dL) (75-99) mg/dL Calcium 7.4 L (8.4-10.2) mg/dL Ionized Calcium Shante (4.5-5.3) mg/dL Total Protein (6.3-8.2) g/dL Albumin (3.5-5.0) g/dL Salicylates mg/dL Assessment and Plan Plan: Assessment: #1. Acute salicylate toxicity, patient denies intentional overdose, reports taking a total of 8 tablets of 325 mg aspirin for a headache. Salicylate level was 68.7. Nephrology is consulted, no pulmonary edema, mentation is appropriate, patient continues on a bicarbonate infusion at a rate of 200 ML per hour #2. Hypoglycemia, possibly related to the above, improved #3. Anion gap metabolic acidosis related to acute salicylate toxicity #4. Positive drug screen for methamphetamines #5. Schizoaffective disorder #6. Anxiety and depression #7. Diabetes mellitus type 2 #8. Hyperlipidemia #9. Hypertension #10. Nonsmoker #11. History of alcohol dependence, the patient reported being sober for the p ast 3 years Plan: Patient is calm and comfortable, a bit lethargic Postoperative Precedex She is responding appropriately, Maintain safety precautions and suicide precaution sitter Continue D5W with 3 A of bicarbonate at 200 ML per hour Continue monitoring salicylate level, electrolytes and renal profile Replace potassium per protocol Consistent carb diet Sliding scale insulin will continue to follow I have personally seen and examined the patient, performed the documentation and the assessment and plan as written. Number of minutes spent on the visit: [10] Time with Patient: Less than 30
[2021-06-09] MEDS: SODIUM CHLORIDE 0.9% 1,000 ML IV SCH ×2 (11:00→11:08)
[2021-06-09 11:49] LABS: Glucose,Whole Blood 105 mg/dL (75-99)
--- NOTE | 2021-06-09 12:01 | XR ---
EXAMINATION TYPE: XR chest 1V portable DATE OF EXAM: 06/09/2021 COMPARISON: Chest x-ray 06/08/2021 HISTORY: Shortness of breath TECHNIQUE: Single frontal view of the chest is obtained. FINDINGS: Lung volumes are low. Patchy basilar density noted on the left. There are overlying leads. There is no evident pneumothorax or pleural effusion. Cardiac mediastinal silhouette is stable. Bone s are unchanged. Surgical clips are present in the right upper quadrant. There is a spinal curvature. Degenerative disc changes are noted in the thoracic spine. IMPRESSION: There may be some basilar atelectasis, difficult to exclude pneumonia, follow-up PA and lateral chest x-ray suggested.
[2021-06-09 13:19] VITALS: BMI 27.5
[2021-06-09 13:25] LABS: Salicylate 21.2 mg/dL
[2021-06-09 13:27] LABS: Potassium 2.7 mmol/L (3.5-5.1)
--- NOTE | 2021-06-09 13:35 | P.PN ---
Progress Note - Text Progress Note Date: 06/09/21 Interval History: Patient was seen resting in bed and was directable and agreeable to speak with this provider in her room. Present over speaker phone was the patient's friend Karlo as per request by the patient. The patient is noted to be an inconsistent historian. She has stated different reasons for her aspirin overdose (abdominal pain, kidney pain, headache), and different amounts of aspirin she has consumed (4, 6, and now 10). Despite all this she vehemently denies that there was any intention for suicide. She reports no suicidal or homicidal ideation, intention, and/or plan. She reports no prior attempts at suicide. Her friend Karlo also reiterated that he was not concerned over any mental health concerns or suicidal thoughts or actions from the patient. The patient reports she continues to grieve the loss of Ken, her fiancee who on 06/01/2021. Despite this she denies any significant symptoms of depression aside from crying episodes. She denies any auditory or visual hallucinations. She denies any paranoia or other delusions. Mental Status Exam: General Appearance: Patient appears to be stated age is alert, directable, and cooperative. Wearing a hospital gown. Behavior: Patient is calmly seated without any agitated behavior. Appropriately tearful. Speech: Patient's speech is fluent and nonpressured. Hyperverbal and repetitive at times. Mood/Affect: Mood is improving mildly, affect is congruent and tearful. Suicidality/Homicidality: Patient denies any suicidal or homicidal ideation, intention, and/or plan. Perceptions: Patient denies any visual hallucinations and denies any auditory hallucinations Though content/process: There is no evidence of any delusional thought content and thought process is linear and goal-directed. Memory and concentration: AOX3, grossly intact for the purposes of this session Judgment and insight: Improving mildly Vital Signs Temp 98.2 F 06/09/21 04:37 Pulse 86 06/09/21 12:15 Resp 16 06/09/21 12:15 BP 91/50 06/09/21 07:00 Pulse Ox 93 L 06/09/21 12:15 Intake & Output 06/08/21 06/09/21 06/09/21 18:59 06:59 18:59 Intake Total 1300 3402.319 1000 Output Total 400 1640 1300 Balance 900 1762.319 -300 Weight 64 kg 66 kg 66 kg Intake: IV 800 2600 1000 Dextrose 5% in Water 1, 800 2600 800 000 ml @ 200 mls/hr IV . Q5H45M [facility] with Sodium Bicarb (1 Meq/ml) 150 ml Rx#:[id number] Sodium Chloride 0.9% 1, 200 000 ml @ 100 mls/hr IV . Q10H [facility] Rx#:[id number] Intake, IV Titration 482.319 Amount Dexmedetomidine/0.9% NaCl 32.319 (Pmx) 400 mcg In Empty Bag 1 bag @ 0.2 MCG/KG/HR 3.2 mls/hr IV .Q24H [facility] Rx#:[id number] Potassium Chloride 10 meq 450 In Water For Injection 1 100ml.bag @ 100 mls/hr IVPB Q1HR [facility] Rx#: [id number] Oral 500 320 Output: Urine 400 1640 1300 Uretheral (Davis) 175 Other: Voiding Method Indwelling Catheter Indwelling Catheter Indwelling Catheter Assessment Major Depressive Disorder, as per history Acute Bereavement Hypokalemia Plan: -Continue your medical management. -At this time patient DOES NOT meet criteria for inpatient psychiatric admission. She is not presenting with imminent risk of harm to self or others. She appears to be future and goal-oriented. Poor medical literacy likely contributed to her overdose on aspirin. Patient was counseled at length on the importance of following medication labels. Best friend Karlo over the phone also does not verbalize concerns for self-harm from the patient. -Patient DOES NOT have decision making capacity at this time and is unable to reason through and communicate/appreciate the risks, benefits and alternatives to treatment. -Delirium precautions recommended with patient including - avoiding use of narcotics and ELECT[employer]CH/[employer] sedatives, limit anticholinergic medications when possible, frequent re-orientation, minimize use of restraints, open window shades during the day and close them at night -Would recommend the following medication changes/additions: We will continue to hold medications. Once medically stable, may restart Wellbutrin XL 150 mg daily and Viibryd 20 mg at bedtime. -Discontinue 1:1 sitter. -Recommend outpatient psychiatric follow-up. -Psychiatry will sign off at this point, please contact with any questions.
--- NOTE | 2021-06-09 14:13 | P.PN ---
Subjective Patient is seen for follow-up for metabolic acidosis associated with salicylate overdose. Patient has been maintained on bicarb drip. Her mentation seems to be close to baseline now. Potassium was low this morning at 2.6 mg/L. Good urine output Serum creatinine 0.75 mg/dL and serum CO2 at 33. Salicylate level at 21.2 today Objective - Vital Signs Vital signs: Vital Signs Temp 98.2 F 06/09/21 04:37 Pulse 86 06/09/21 12:15 Resp 16 06/09/21 12:15 BP 91/50 06/09/21 07:00 Pulse Ox 93 L 06/09/21 12:15 Intake & Output 06/08/21 06/09/21 06/09/21 18:59 06:59 18:59 Intake Total 1300 3402.319 1000 Output Total 400 1640 1300 Balance 900 1762.319 -300 Weight 64 kg 66 kg 66 kg Intake: IV 800 2600 1000 Dextrose 5% in Water 1, 800 2600 800 000 ml @ 200 mls/hr IV . Q5H45M [facility] with Sodium Bicarb (1 Meq/ml) 150 ml Rx#:[id number] Sodium Chloride 0.9% 1, 200 000 ml @ 100 mls/hr IV . Q10H [facility] Rx#:[id number] Intake, IV Titration 482.319 Amount Dexmedetomidine/0.9% NaCl 32.319 (Pmx) 400 mcg In Empty Bag 1 bag @ 0.2 MCG/KG/HR 3.2 mls/hr IV .Q24H [facility] Rx#:[id number] Potassium Chloride 10 meq 450 In Water For Injection 1 100ml.bag @ 100 mls/hr IVPB Q1HR [facility] Rx#: [id number] Oral 500 320 Output: Urine 400 1640 1300 Uretheral (Davis) 175 Other: Voiding Method Indwelling Catheter Indwelling Catheter Indwelling Catheter - Exam Patient is comfortable. Awake. Not in any acute distress Family member present at bedside Examination of the heart S1 and S2 Examination lungs bilateral breath sounds are heard Abdomen is soft nontender Examination of lower extremities shows no evidence of edema - Labs CBC & Chem 7: 06/09/21 05:27 06/09/21 13:00 Labs: Abnormal Lab Results - Last 24 Hours (Table) 06/08/21 06/08/21 06/08/21 Range/Units 16:30 17:35 19:33 WBC (3.8-10.6) k/uL RBC (3.80-5.40) m/uL Hgb (11.4-16.0) gm/dL Hct (34.0-46.0) % RDW (11.5-15.5) % Potassium 3.3 L 3.0 L (3.5-5.1) mmol/L Chloride 110 H 108 H (98-107) mmol/L Carbon Dioxide 20 L (22-30) mmol/L Glucose 168 H 120 H (74-99) mg/dL POC Glucose (mg/dL) 227 H (75-99) mg/dL Calcium (8.4-10.2) mg/dL Ionized Calcium Shante (4.5-5.3) mg/dL Total Protein (6.3-8.2) g/dL Albumin (3.5-5.0) g/dL Salicylates 64.3 H* 63.3 H* mg/dL 06/08/21 06/08/21 06/09/21 Range/Units 21:01 23:10 01:09 WBC (3.8-10.6) k/uL RBC (3.80-5.40) m/uL Hgb (11.4-16.0) gm/dL Hct (34.0-46.0) % RDW (11.5-15.5) % Potassium 3.1 L 3.2 L 3.1 L (3.5-5.1) mmol/L Chloride 108 H (98-107) mmol/L Carbon Dioxide (22-30) mmol/L Glucose 126 H 168 H 165 H (74-99) mg/dL POC Glucose (mg/dL) (75-99) mg/dL Calcium 8.0 L 7.8 L 7.6 L (8.4-10.2) mg/dL Ionized Calcium Shante (4.5-5.3) mg/dL Total Protein (6.3-8.2) g/dL Albumin (3.5-5.0) g/dL Salicylates 54.3 H* 51.5 H* 49.4 H* mg/dL 06/09/21 06/09/21 06/09/21 Range/Units 03:06 03:06 05:27 WBC 3.7 L (3.8-10.6) k/uL RBC 2.87 L (3.80-5.40) m/uL Hgb 9.2 L D (11.4-16.0) gm/dL Hct 28.2 L (34.0-46.0) % RDW 15.7 H (11.5-15.5) % Potassium 3.0 L (3.5-5.1) mmol/L Chloride (98-107) mmol/L Carbon Dioxide (22-30) mmol/L Glucose 163 H (74-99) mg/dL POC Glucose (mg/dL) (75-99) mg/dL Calcium 7.4 L (8.4-10.2) mg/dL Ionized Calcium Shante 4.1 L (4.5-5.3) mg/dL Total Protein 5.1 L (6.3-8.2) g/dL Albumin 3.0 L (3.5-5.0) g/dL Salicylates 45.5 H* mg/dL 06/09/21 06/09/21 06/09/21 Range/Units 05:27 06:41 08:02 WBC (3.8-10.6) k/uL RBC (3.80-5.40) m/uL Hgb (11.4-16.0) gm/dL Hct (34.0-46.0) % RDW (11.5-15.5) % Potassium 2.6 L* (3.5-5.1) mmol/L Chloride (98-107) mmol/L Carbon Dioxide 33 H (22-30) mmol/L Glucose 145 H (74-99) mg/dL POC Glucose (mg/dL) 179 H (75-99) mg/dL Calcium 7.4 L (8.4-10.2) mg/dL Ionized Calcium Shante (4.5-5.3) mg/dL Total Protein (6.3-8.2) g/dL Albumin (3.5-5.0) g/dL Salicylates 41.0 H* mg/dL 06/09/21 06/09/21 Range/Units 11:47 13:00 WBC (3.8-10.6) k/uL RBC (3.80-5.40) m/uL Hgb (11.4-16.0) gm/dL Hct (34.0-46.0) % RDW (11.5-15.5) % Potassium 2.7 L* (3.5-5.1) mmol/L Chloride (98-107) mmol/L Carbon Dioxide (22-30) mmol/L Glucose (74-99) mg/dL POC Glucose (mg/dL) 105 H (75-99) mg/dL Calcium (8.4-10.2) mg/dL Ionized Calcium Shante (4.5-5.3) mg/dL Total Protein (6.3-8.2) g/dL Albumin (3.5-5.0) g/dL Salicylates mg/dL Assessment and Plan Assessment: 1. Salicylate toxicity, level currently down to 21.2. Patient did not need renal replacement therapy 2. Metabolic acidosis and respiratory alkalosis associated with salicylate toxicity 3. Hypokalemia associated with decreased intake and bicarb drip, being replaced 4. History of schizoaffective disorder Plan: DC bicarb drip as salicylate level is less than 40, it is at 21.2 today. Replace potassium Discontinue urine pH checks Repeat level in a.m. and repeat labs in a.m.
[2021-06-09] MEDS: ACETAMINOPHEN TAB 325 MG TAB PO PRN (14:41)
[2021-06-09] MEDS: traMADol 50 MG TAB PO PRN ×2 (15:47→20:49)
[2021-06-09 16:15] LABS: Potassium 2.8 mmol/L (3.5-5.1); Salicylate 16.1 mg/dL
[2021-06-09 17:12] LABS: Glucose,Whole Blood 86 mg/dL (75-99)
--- NOTE | 2021-06-09 21:00 | HP ---
HISTORY AND PHYSICAL CHIEF COMPLAINT: Mental status changes, depression and possible drug overdose. HISTORY OF PRESENT ILLNESS: This is another admission for this 60-year-old white female who has a longstanding history of depression and alcoholism. She has not had anything to drink for the last several years. She has been doing fairly well. She was living with her fiance and she suddenly found him a week or so ago. She is having a great deal of difficulty dealing with this. Lately she has also been being seen for generalized pain throughout the entire body. This has been extensively worked up, and no etiology has been identified so far. She came into the emergency room extremely agitated and was subsequently found out to have a very high salicylate level. She denies having overdosed or trying to kill herself. REVIEW OF SYSTEMS: She has had no problems with vision or hearing, headache, focal neurologic problems, chest pain, shortness of breath, abdominal pain, nausea, vomiting, hematemesis, melena, hematochezia, jaundice, hematuria, frequency, urgency, incontinence, etc. She does have type 2 diabetes. Past medical history, family history, and personal and social histories include her history of alcoholism, diabetes, depression and CKD. She has been recently on potassium 20 mEq twice a day, Lasix 40 mg once a day, oxybutynin 5 mg twice a day, simvastatin 20 mg once a day, ibuprofen 800 q.i.d. p.r.n., Wellbutrin 150 mg once a day, pioglitazone 15 mg once a day, metformin 500 mg once a day, glimepiride 4 mg twice a day, omeprazole 20 mg once a day, ropinirole 0.25 at bedtime, spironolactone 25 mg once a day, zolpidem 12.5 mg once a day at night p.r.n., and vitamin D. She is ALLERGIC TO NEOSPORIN AND QUINOLONES. She does not smoke and she denies starting up alcohol consumption again. PHYSICAL EXAMINATION: Blood pressure is 130/90 with a pulse of 88, respirations of 36, and she is afebrile. In general she appears to be extremely agitated. She is currently combative. Head, ears, eyes, nose, mouth and throat are grossly normal. Breath sounds are heard bilaterally and she is in sinus rhythm. The abdomen is slightly protuberant, soft and nontender. Extremities are normal. IMPRESSION: 1. Mental status changes and agitation. 2. Probable drug ingestion and overdose. 3. History of alcoholism. 4. History of type 2 diabetes. PLAN: 1. Bedrest. 2. IV fluids. 3. Monitor in ICU. 4. Psych consult. MICHELLE / NNAMDI: [id number] /
--- NOTE | 2021-06-09 21:00 | PN ---
PROGRESS NOTE DATE OF SERVICE: 06/09/2021 CHIEF COMPLAINT: Aspirin overdose and depression. HISTORY OF PRESENT ILLNESS: This lady is awake and alert and denies overdosing or intentionally trying to hurt herself. She is awake and alert. PHYSICAL EXAMINATION: Her chest is clear. Cardiac exam is normal. The abdomen is soft and nontender. IMPRESSION: 1. Aspirin overdose. 2. Major depression. 3. Type 2 diabetes. 4. History of alcoholism. PLAN: 1. Progress activity and diet. 2. Wait for thorough psychiatric evaluation. She is denying any effort to hurt herself. MMODL / IJN: [id number] /
[2021-06-09 21:11] LABS: Glucose,Whole Blood 81 mg/dL (75-99)
[2021-06-09] MEDS ORDERED: HALOPERIDOL LACTATE 5 MG/ML 1 ML VIAL IM PRN (23:01)
[2021-06-10] MEDS: ACETAMINOPHEN TAB 325 MG TAB PO PRN (02:17)
[2021-06-10] MEDS: traMADol 50 MG TAB PO PRN ×2 (04:14→11:03)
[2021-06-10 07:03] LABS: Glucose,Whole Blood 105 mg/dL (75-99)
[2021-06-10 07:15] LABS: ALT 15 U/L (4-34); AST 28 U/L (14-36); African American GFR (CKD) >90 (>60 ml/min/1.73 sqM); Albumin 3.1 g/dL (3.5-5.0); Albumin/Globulin Ratio 1.4; Alkaline Phosphatase 52 U/L (38-126); Anion Gap 2 mmol/L; Blood Urea Nitrogen 10 mg/dL (7-17); Calcium 8.7 mg/dL (8.4-10.2); Carbon Dioxide 27 mmol/L (22-30); Chloride 112 mmol/L (98-107); Globulin 2.2 g/dL; Glucose 92 mg/dL (74-99); Non-African American GFR(CKD) >90 (>60 ml/min/1.73 sqM); Potassium 3.5 mmol/L (3.5-5.1); Sodium 141 mmol/L (137-145); Total Bilirubin 0.5 mg/dL (0.2-1.3); Total Protein 5.3 g/dL (6.3-8.2)
[2021-06-10] MEDS: INSULIN ASPART (NovoLOG) 100 UNIT/ML VIAL SQ SCH ×4 (08:05→22:26)
--- NOTE | 2021-06-10 08:28 | XR ---
EXAMINATION TYPE: XR chest 1V portable DATE OF EXAM: 06/10/2021 COMPARISON: 06/09/2021 HISTORY: Shortness of breath TECHNIQUE: Single frontal view of the chest is obtained. FINDINGS: Heart size normal. There is a soft tissue fold overlying the right lung apex. No sizable p neumothorax. No overt failure. Mild hyperinflation. Subsegmental linear changes left lung base persis t. IMPRESSION: Subsegmental changes left lung base atelectasis favored over pneumonia correlate clinica lly.
--- NOTE | 2021-06-10 08:35 | US ---
EXAMINATION TYPE: US abdomen comp/pelvis limited DATE OF EXAM: 06/10/2021 COMPARISON: CT & US CLINICAL HISTORY: abdominal pain. ABD pain, pt states very difficult to void bladder, GB removed EXAM MEASUREMENTS: Liver Length: 14.1 cm CBD: 1.3 cm Spleen: 9.8 cm Right Kidney: 10.4 x 4.0 x 5.2 cm Left Kidney: 11.1 x 4.8 x 3.9 cm Post Void Residual: Pt unable to void bladder Pancreas: 2mm duct visualized, otherwise appeared wnl Liver: Lobulated contour, coarse echotexture Gallbladder: Surgically absent CBD: Dilated Spleen: wnl Right Kidney: wnl Left Kidney: wnl Upper IVC: wnl Abd Aorta: wnl Bladder: wnl Bilateral Jets Seen No Noted, possible small amount of fluid adjacent to spleen IMPRESSION: 1. Nodular outline of the liver with coarse echotexture, please correlate with liver function tests/h epatic viral serology. 2. Previous cholecystectomy. Dilated CBD which could be related to postcholecystectomy status, recomm end precautionary correlation with bilirubin level. 3. Minimal perisplenic fluid, probably insignificant. 4. Grossly unremarkable kidneys. No gross urinary bladder lesion. The patient was unable to void.
[2021-06-10] MEDS: VIIBRYD 20 MG PO SCH (08:39)
[2021-06-10] MEDS: PANTOPRAZOLE 40 MG/10 ML VIAL IVP SCH (08:42)
[2021-06-10] MEDS: buPROPion XL 150 MG TAB.ER.24H PO SCH (08:42)
[2021-06-10] MEDS: SODIUM CHLORIDE 0.9% 1,000 ML IV SCH ×2 (08:43→16:07)
[2021-06-10 09:16] LABS: Basophils # (A) 0.02 X 10*3/uL (0.00-0.10); Basophils % (A) 0.6 %; Eosinophils # (A) 0.13 X 10*3/uL (0.04-0.35); Eosinophils % (A) 3.7 %; HCT 28.8 % (37.2-46.3); HGB 8.7 g/dL (12.0-15.0); Immature Grans, Automated 0.6 %; Lymphocytes # (A) 1.54 X 10*3/uL (0.90-5.00); MCH 31.2 pg (27.0-32.0); MCHC 30.2 g/dL (32.0-37.0); MCV 103.2 fL (80.0-97.0); Mean Platelet Volume 9.6 fL (9.5-12.2); Monocytes # (A) 0.34 X 10*3/uL (0.20-1.00); Monocytes % (A) 9.7 %; NRBC Per 100 WBC 0 /100 WBCS (0.0-0.0); Neutrophils # (A) 1.45 X 10*3/uL (1.80-7.70); Neutrophils % (A) 41.4 %; Platelet Count 200 X 10*3/uL (140-440); RBC 2.79 X 10*6/uL (4.10-5.20); RDW 15.2 % (11.5-14.5)
[2021-06-10] MEDS ORDERED: POTASSIUM CHLORIDE ER 20 MEQ TAB.ER PO STA (10:37)
[2021-06-10 11:34] LABS: Glucose,Whole Blood 127 mg/dL (75-99)
[2021-06-10] MEDS: POTASSIUM CHLORIDE ER 20 MEQ TAB.ER PO SCH ×2 (12:50→20:44)
--- NOTE | 2021-06-10 16:57 | P.PN ---
Subjective Patient is seen for follow-up for metabolic acidosis associated with salicylate overdose. Patient is status post IV bicarb. Salicylate level was 21.2 yesterday and is down to 16.1 today. Mentation is back to baseline. Patient denies any significant complaints. Potassium was low yesterday and has been replaced. Currently maintained on normal saline Objective - Vital Signs Vital signs: Vital Signs Temp 98.6 F 06/10/21 12:30 Pulse 76 06/10/21 12:30 Resp 18 06/10/21 12:30 BP 136/78 06/10/21 12:30 Pulse Ox 96 06/10/21 12:30 Intake & Output 06/09/21 06/10/21 06/10/21 18:59 06:59 18:59 Intake Total 1300 1790 Output Total 1560 81 Balance -260 1709 Weight 66 kg Intake: IV 1300 Dextrose 5% in Water 1, 800 000 ml @ 200 mls/hr IV . Q5H45M [facility]AYA with Sodium Bicarb (1 Meq/ml) 150 ml Rx#:[id number] Sodium Chloride 0.9% 1, 500 000 ml @ 100 mls/hr IV . Q10H [facility]A Rx#:[id number] Intake, IV Titration 1200 Amount Sodium Chloride 0.9% 1, 1200 000 ml @ 100 mls/hr IV . Q10H [facility]A Rx#:[id number] Oral 590 Output: Urine 1560 Post Void Residual 81 Other: Voiding Method Indwelling Catheter Toilet # Voids 2 - Exam Patient is comfortable. Awake. Not in any acute distress Examination of the heart S1 and S2 Examination lungs bilateral breath sounds are heard Abdomen is soft nontender Examination of lower extremities shows no evidence of edema - Labs CBC & Chem 7: 06/10/21 06:44 06/10/21 06:44 Labs: Abnormal Lab Results - Last 24 Hours (Table) 06/09/21 06/10/21 06/10/21 Range/Units 22:43 06:44 06:44 WBC 3.50 L (4.50-10.00) X 10*3/uL RBC 2.79 L (4.10-5.20) X 10*6/uL Hgb 8.7 L (12.0-15.0) g/dL Hct 28.8 L (37.2-46.3) % MCV 103.2 H (80.0-97.0) fL MCHC 30.2 L (32.0-37.0) g/dL RDW 15.2 H (11.5-14.5) % Neutrophils # 1.45 L (1.80-7.70) X 10*3/uL Potassium 3.3 L (3.5-5.1) mmol/L Chloride 112 H (98-107) mmol/L POC Glucose (mg/dL) (75-99) mg/dL Total Protein 5.3 L (6.3-8.2) g/dL Albumin 3.1 L (3.5-5.0) g/dL 06/10/21 06/10/21 Range/Units 07:01 11:30 WBC (4.50-10.00) X 10*3/uL RBC (4.10-5.20) X 10*6/uL Hgb (12.0-15.0) g/dL Hct (37.2-46.3) % MCV (80.0-97.0) fL MCHC (32.0-37.0) g/dL RDW (11.5-14.5) % Neutrophils # (1.80-7.70) X 10*3/uL Potassium (3.5-5.1) mmol/L Chloride (98-107) mmol/L POC Glucose (mg/dL) 105 H 127 H (75-99) mg/dL Total Protein (6.3-8.2) g/dL Albumin (3.5-5.0) g/dL Assessment and Plan Assessment: 1. Salicylate toxicity, level currently down to 16.1. Patient did not need renal replacement therapy 2. Metabolic acidosis and respiratory alkalosis associated with salicylate toxicity 3. Hypokalemia associated with decreased intake and bicarb drip, status post replacement 4. History of schizoaffective disorder Plan: Replace potassium Encourage increase oral intake DC IV fluids if tolerating oral intake well We will sign off
[2021-06-10 17:15] LABS: Glucose,Whole Blood 126 mg/dL (75-99)
--- NOTE | 2021-06-10 20:05 | PN ---
PROGRESS NOTE CHIEF COMPLAINT: Aspirin overdose and depression. HISTORY OF PRESENT ILLNESS: This lady remains quite agitated. Apparently during the night she began acting out and was quite belligerent and inappropriate. Haldol was given and she calmed down. She is still quite hyperactive today. She does not understand why she is in the hospital. PHYSICAL EXAMINATION: Her chest is clear. Cardiac exam is normal. Abdomen is soft, nontender. IMPRESSION: 1. Major depression. 2. Possible rosanne. 3. Probable post-traumatic stress disorder. 4. History of alcoholism. 5. Aspirin overdose. PLAN: Start her on antidepressant with Remeron along with Seroquel at bedtime. MMODL / IJN: [id number] /
[2021-06-10] MEDS: MIRTAZAPINE 45 MG TABLET PO SCH (23:55)
[2021-06-10] MEDS: QUEtiapine 200 MG TAB PO SCH (23:55)
[2021-06-11 07:01] LABS: Glucose,Whole Blood 86 mg/dL (75-99)
--- NOTE | 2021-06-11 08:18 | XR ---
EXAMINATION TYPE: XR chest 1V portable DATE OF EXAM: 06/11/2021 COMPARISON: Chest x-ray 06/10/[address] 01/26/2019 HISTORY: Shortness of breath TECHNIQUE: Single frontal view of the chest is obtained. FINDINGS: There is blunting the left costophrenic angle, patchy density at the left lung base. No ev ident pneumothorax. Cardiac mediastinal silhouette is stable, prominent epicardial fat pad noted on p rior CT. Bones are unchanged. There is a spinal curvature. IMPRESSION: Basilar atelectasis versus scarring, difficult to exclude pneumonia
[2021-06-11] MEDS: INSULIN ASPART (NovoLOG) 100 UNIT/ML VIAL SQ SCH ×4 (08:59→21:51)
[2021-06-11] MEDS: VIIBRYD 20 MG PO SCH (09:00)
[2021-06-11 09:29] LABS: African American GFR (CKD) 108.4 (60.0-200.0); Albumin 3.7 g/dL (3.8-4.9); Albumin/Globulin Ratio 2.31 (1.60-3.17); Anion Gap 8.3 mmol/L (10.00-18.00); BUN/Creat Ratio 9.43 Ratio (12.00-20.00); Blood Urea Nitrogen 6.6 mg/dL (9.0-27.0); Calcium 9.1 mg/dL (8.7-10.3); Carbon Dioxide 22.7 mmol/L (20.0-27.5); Globulin 1.6 g/dL (1.6-3.3); Non-African American GFR(CKD) 93.5 (60.0-200.0); Potassium 4.1 mmol/L (3.5-5.5); Total Bilirubin 0.2 mg/dL (0.30-1.20); Total Protein 5.3 g/dL (6.2-8.2)
[2021-06-11 09:30] LABS: Basophils # (A) 0.04 X 10*3/uL (0.00-0.10); Basophils % (A) 1.2 %; Eosinophils # (A) 0.17 X 10*3/uL (0.04-0.35); Eosinophils % (A) 5.2 %; HCT 31.1 % (37.2-46.3); HGB 9.2 g/dL (12.0-15.0); Immature Grans, Automated 0.6 %; Lymphocytes # (A) 1.43 X 10*3/uL (0.90-5.00); Lymphocytes % (A) 44.1 %; MCHC 29.6 g/dL (32.0-37.0); MCV 104.7 fL (80.0-97.0); Mean Platelet Volume 9.5 fL (9.5-12.2); Monocytes # (A) 0.24 X 10*3/uL (0.20-1.00); Monocytes % (A) 7.4 %; NRBC Per 100 WBC 0 /100 WBCS (0.0-0.0); Neutrophils # (A) 1.34 X 10*3/uL (1.80-7.70); Neutrophils % (A) 41.5 %; Platelet Count 189 X 10*3/uL (140-440); RBC 2.97 X 10*6/uL (4.10-5.20); RDW 14.9 % (11.5-14.5); WBC 3.24 X 10*3/uL (4.50-10.00)
[2021-06-11] MEDS: PANTOPRAZOLE 40 MG/10 ML VIAL IVP SCH (10:13)
[2021-06-11] MEDS: buPROPion XL 150 MG TAB.ER.24H PO SCH (10:14)
[2021-06-11] MEDS: POTASSIUM CHLORIDE ER 20 MEQ TAB.ER PO SCH ×2 (10:14→21:48)
[2021-06-11] MEDS: SODIUM CHLORIDE 0.45% 1,000 ML IV SCH (10:20)
[2021-06-11 11:16] LABS: Glucose,Whole Blood 170 mg/dL (75-99)
[2021-06-11] MEDS: SODIUM CHLORIDE 0.9% 1,000 ML IV SCH (11:21)
--- NOTE | 2021-06-11 14:20 | PN ---
PROGRESS NOTE CHIEF COMPLAINT: Mental status changes and aspirin overdose. HISTORY OF PRESENT ILLNESS: This lady is doing a little bit better. She slept through the night last night without agitation or delirium. She is retaining urine and a bladder scan revealed 700 mL. She will be straight-catheterized. She denies any chest pain, shortness of breath, etc., and she seems more calm. PHYSICAL EXAMINATION: Her chest is clear. Cardiac exam is normal. The abdomen is soft, nontender. IMPRESSION: 1. Mental status changes. 2. Aspirin overdose. 3. Delirium. 4. Acute psychosis. 5. History of alcoholism. 6. Urinary retention. PLAN: 1. Straight catheterization. 2. Increase activity and continue to monitor her neurologically and psychiatrically. She might be able to go home in the next day or two. MMODL / IJN: [id number] /
--- NOTE | 2021-06-11 14:26 | P.PN ---
Subjective Patient is seen for follow-up for metabolic acidosis associated with salicylate overdose. Patient is status post IV bicarb. Salicylate level was 21.2 yesterday and is down to 16.1 today. Mentation is back to baseline. Patient denies any significant complaints. Currently maintained on normal saline Sodium is high at 147 today, therefore patient is seen again today Objective - Vital Signs Vital signs: Vital Signs Temp 97.5 F L 06/11/21 12:41 Pulse 98 06/11/21 12:41 Resp 20 06/11/21 12:41 BP 132/78 06/11/21 12:41 Pulse Ox 99 06/11/21 12:41 Intake & Output 06/10/21 06/11/21 06/11/21 18:59 06:59 18:59 Intake Total 1200 1920 Output Total 1100 Balance 1200 1920 -1100 Intake: IV 1200 Sodium Chloride 0.9% 1, 1200 000 ml @ 100 mls/hr IV . Q10H [facility]HAYA Rx#:[id number] Intake, IV Titration 1200 Amount Sodium Chloride 0.9% 1, 1200 000 ml @ 100 mls/hr IV . Q10H [facility]HAYA Rx#:[id number] Oral 720 Output: Urine 1100 Straight 1100 Other: Voiding Method Toilet Toilet # Voids 2 3 - Exam Patient is comfortable. Awake. Not in any acute distress Examination of the heart S1 and S2 Examination lungs bilateral breath sounds are heard Abdomen is soft nontender Examination of lower extremities shows no evidence of edema - Labs CBC & Chem 7: 06/11/21 06:44 06/11/21 06:44 Labs: Abnormal Lab Results - Last 24 Hours (Table) 06/10/21 06/11/21 06/11/21 Range/Units 17:14 06:44 06:44 WBC 3.24 L (4.50-10.00) X 10*3/uL RBC 2.97 L (4.10-5.20) X 10*6/uL Hgb 9.2 L (12.0-15.0) g/dL Hct 31.1 L (37.2-46.3) % MCV 104.7 H (80.0-97.0) fL MCHC 29.6 L (32.0-37.0) g/dL RDW 14.9 H (11.5-14.5) % Neutrophils # 1.34 L (1.80-7.70) X 10*3/uL Sodium 147 H (135-145) mmol/L Chloride 116 H (96-109) mmol/L Anion Gap 8.30 L (10.00-18.00) mmol/L BUN 6.6 L (9.0-27.0) mg/dL BUN/Creatinine Ratio 9.43 L (12.00-20.00) Ratio POC Glucose (mg/dL) 126 H (75-99) mg/dL Total Bilirubin 0.20 L (0.30-1.20) mg/dL Total Protein 5.3 L (6.2-8.2) g/dL Albumin 3.7 L (3.8-4.9) g/dL 06/11/21 Range/Units 11:15 WBC (4.50-10.00) X 10*3/uL RBC (4.10-5.20) X 10*6/uL Hgb (12.0-15.0) g/dL Hct (37.2-46.3) % MCV (80.0-97.0) fL MCHC (32.0-37.0) g/dL RDW (11.5-14.5) % Neutrophils # (1.80-7.70) X 10*3/uL Sodium (135-145) mmol/L Chloride (96-109) mmol/L Anion Gap (10.00-18.00) mmol/L BUN (9.0-27.0) mg/dL BUN/Creatinine Ratio (12.00-20.00) Ratio POC Glucose (mg/dL) 170 H (75-99) mg/dL Total Bilirubin (0.30-1.20) mg/dL Total Protein (6.2-8.2) g/dL Albumin (3.8-4.9) g/dL Assessment and Plan Assessment: 1. Salicylate toxicity, level currently down to 16.1. Patient did not need renal replacement therapy 2. Metabolic acidosis and respiratory alkalosis associated with salicylate toxicity 3. Hypokalemia associated with decreased intake and bicarb drip, status post replacement 4. History of schizoaffective disorder 5. Hypernatremia associated with free water deficit. Change IV fluids to half- normal saline Plan: Change IV fluids to half-normal saline Repeat labs in a.m.
[2021-06-11 17:06] LABS: Glucose,Whole Blood 117 mg/dL (75-99)
[2021-06-11 19:49] LABS: Glucose,Whole Blood 124 mg/dL (75-99)
[2021-06-12] MEDS: MIRTAZAPINE 45 MG TABLET PO SCH (00:22)
[2021-06-12] MEDS: QUEtiapine 200 MG TAB PO SCH (00:22)
[2021-06-12] MEDS: SODIUM CHLORIDE 0.45% 1,000 ML IV SCH ×2 (00:22→13:20)
[2021-06-12] MEDS: traMADol 50 MG TAB PO PRN ×2 (03:59→17:26)
[2021-06-12] MEDS ORDERED: PANTOPRAZOLE 40 MG TABLET PO SCH (07:30)
[2021-06-12 07:44] LABS: Glucose,Whole Blood 101 mg/dL (75-99)
[2021-06-12] MEDS: INSULIN ASPART (NovoLOG) 100 UNIT/ML VIAL SQ SCH ×3 (08:22→17:24)
[2021-06-12] MEDS: POTASSIUM CHLORIDE ER 20 MEQ TAB.ER PO SCH (08:24)
[2021-06-12] MEDS: buPROPion XL 150 MG TAB.ER.24H PO SCH (08:24)
[2021-06-12] MEDS: VIIBRYD 20 MG PO SCH (08:25)
[2021-06-12 12:13] LABS: Glucose,Whole Blood 105 mg/dL (75-99)
[2021-06-12 12:29] VITALS: BP 131/77; PULSE 80; TEMP 97.5
[2021-06-12 16:40] VITALS: RESP 18
[2021-06-12 17:18] LABS: Glucose,Whole Blood 92 mg/dL (75-99)
--- NOTE | 2021-06-12 19:00 | DS ---
DISCHARGE SUMMARY CHIEF COMPLAINT: Overdose of aspirin and mental status changes. HISTORY OF PRESENT ILLNESS AND PHYSICAL EXAMINATION: Details of this lady's history and physical can be found in the initial workup. LABORATORY STUDIES: While she was in the hospital she had laboratory studies, details of which can be found in the laboratory section of her chart. COURSE IN THE HOSPITAL: After admission she was placed on bedrest and started on protocol from Poison Control regarding her aspirin overdose. She intermittently became quite agitated, but her salicylate level fell and she continued to improve. She occasionally would become extremely agitated, delirious and even psychotic, especially at night. This also improved as medications were added. She was seen by Psychiatry, who did not feel that she had any psychiatric issues. She did continue to improve and it was felt that she could be discharged on June 12. She will go home with her mother. She will receive close followup and will be asked to come into the office tomorrow. She will go home on Remeron and Seroquel as well as some of her usual medications, and some of them will also be stopped. FINAL DIAGNOSIS: 1. Aspirin overdose. 2. Major depression. 3. Mental status changes. 4. Episodes of acute psychosis. 5. History of alcoholism. 6. Type 2 diabetes. OPERATIONS: None. CONSULTATIONS: 1. Intensive Medicine. 2. Psychiatry. She is improved. MMODL / IJN: [id number] /
== END 2021-06-12 18:42 | disposition home or self-care (01) | DRG 918 ==
LOC: EC 06:39 → 6NMEDSUR 08:25 → OBSVTOIN 10:55 → 3SCARD 10:57 → 2SICU 11:10 → 5NMEDONC 06-09 16:51
PROVIDERS: ADMIT Family Medicine; ATTEND Family Medicine
DX: T39.011A Poisoning by aspirin, accidental (unintentional), initial encounter (principal); E87.0 Hyperosmolality and hypernatremia; E87.4 Mixed disorder of acid-base balance; E87.2 Acidosis; F05 Delirium due to known physiological condition; E11.65 Type 2 diabetes mellitus with hyperglycemia; R33.9 Retention of urine, unspecified; F29 Unspecified psychosis not due to a substance or known physiological condition; E11.649 Type 2 diabetes mellitus with hypoglycemia without coma; E11.22 Type 2 diabetes mellitus with diabetic chronic kidney disease; F10.21 Alcohol dependence, in remission; F25.9 Schizoaffective disorder, unspecified; F43.10 Post-traumatic stress disorder, unspecified; F32.A Depression, unspecified; F41.9 Anxiety disorder, unspecified; E87.6 Hypokalemia; T39.095A Adverse effect of salicylates, initial encounter; E78.5 Hyperlipidemia, unspecified; I10 Essential (primary) hypertension; K21.9 Gastro-esophageal reflux disease without esophagitis; Z78.1 Physical restraint status; Z63.4 Disappearance and death of family member; Z90.49 Acquired absence of other specified parts of digestive tract; Z88.1 Allergy status to other antibiotic agents; Z79.899 Other long term (current) drug therapy; Z79.84 Long term (current) use of oral hypoglycemic drugs; Z88.8 Allergy status to other drugs, medicaments and biological substances
CPT/HCPCS: 36415; 70450; 71045; 71046; 76700; 76857; 80048; 80053; 80143; 80179; 80306; 80320; 81003; 82075; 82330; 82803; 83036; 83605; 83735; 84132; 84484; 85025; 85610; 85730; 93005; 96360; 96361; 96365; 96375; 99291; 99292